=== PATIENT | female | born 1955 | race Two or more races ===

== ENCOUNTER 2016-03-29 13:49 | Emergency (ER) | payer BC, OTHER ==
[2016-03-29 14:07] VITALS: BP 150/84
[2016-03-29] MEDS ORDERED: Aspirin Low Dose CHEW TAB* 81 MG PO ONE (14:38)
[2016-03-29] MEDS ORDERED: Aspirin Low Dose CHEW TAB* 81 MG ONE (14:44)
--- NOTE | 2016-03-29 15:16 | UC ---
Anne Marie Chaidez Claudia, scribed for Radha Nielsen DO on 03/29/16 at 1410 . Cardiac HPI - HPI Summary HPI Summary: 60 year old female presents to the [facility] with CP. Pt notes the pain is located in her left anterior chest and does not radiate to her arm, neck or jaw. She describes this pain as a pressure pain and notes it is currently a 9/10. She notes the pain has been intermittent since yesterday am. 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 She denies any skin daiphoresis, fever, chills, GUTIERREZ, rashes, dizziness, vision changes. Pt notes that she has had some SOB that wakes her up at night for the past few days. FHx of PA (age 35) - History of Current Complaint Chief Complaint: UCChestPain Stated Complaint: CHEST PAIN Hx Obtained From: Patient Onset/Duration: Sudden Onset, Still Present Initial Severity: Severe Current Severity: Severe Pain Intensity: 9 Chest Pain Location: Left Anterior Character: Pressure/Squeezing Aggravating: Nothing Alleviating: Nothing Associated Signs & Symptoms: Positive: Chest Pain, Recent Stress, SOB. Negative : Vision Changes, Dizziness, Syncope, Fever, Diaphoresis, Nausea/Vomiting, Cough , Back Pain, Abdominal Pain - Allergy/Home Medications Allergies/Adverse Reactions: Allergies Allergy/AdvReac Type Severity Reaction Status Date / Time Codeine Allergy Rash Verified 03/29/16 14:00 Home Medications: Home Medications Cyclobenzaprine TAB* [Flexeril TAB*] 1 tab PRN 03/29/16 [History] Fluticasone-Salmeterol 250-50* [Advair Diskus 250-50*] 1 puff DAILY 03/29/16 [ History Confirmed 03/29/16] Meclizine TAB* [Antivert 12.5 TAB*] 03/29/16 [History] PMH/Surg Hx/FS Hx/Imm Hx Previously Healthy: Yes Endocrine History Of: Denies: Diabetes, Thyroid Disease, Hyperthyroidism, Hypothyroidism, Dyslipidemia Cardiovascular History Of: Denies: Cardiac Disorders, Hypertension, Pacemaker/ICD Respiratory History Of: Reports: Asthma Denies: COPD, Bronchitis, Pneumonia, Pulmonary Embolism GI/ History Of: Denies: Gastroesophageal Reflux, Ulcer, Gastrointestinal Bleed, Gall Bladder Disease, Kidney Stones, Diverticulitis, Renal Disease, Urosepsis Neurological History Of: Denies: TIA, CVA, Dementia, Seizures, Migraine Psychological History Of: Reports: Depression Denies: Anxiety, Bipolar Disorder, Schizophrenia, Post Traumatic Stress Disorder Cancer History Of: Denies: Breast Cancer Other History Of: Anticoagulant Therapy - She took an ASA today (325 mg), but she does not take it regularly. Negative For: HIV, Hepatitis B, Hepatitis C - Surgical History Surgical History: Yes Surgery Procedure, Year, and Place: bilat breast reduction; hysterectomy; right inguinal hernia repair; LEFT LEG VERICOSE VEINS - Family History Known Family History: Positive: None, Cardiac Disease, Hypertension - Father, Diabetes - Social History Occupation: Employed Full-time Lives: Alone Alcohol Use: Occasionally Substance Use Type: None Smoking Status (MU): Never Smoked Tobacco Have You Smoked in the Last Year: No Review of Systems Constitutional: Other - no skin diaphoresis Skin: Negative Eyes: Other - No blurred vision ENT: Negative Respiratory: Negative Cardiovascular: Chest Pain Gastrointestinal: Negative Genitourinary: Negative Motor: Negative Neurovascular: Negative Musculoskeletal: Negative Neurological: Negative Psychological: Negative All Other Systems Reviewed And Are Negative: Yes Physical Exam Triage Information Reviewed: Yes Appearance: Well-Appearing, No Pain Distress, Obese Vital Signs: Initial Vital Signs Temp 97.4 F 03/29/16 14:01 Pulse 64 03/29/16 14:01 Resp 18 03/29/16 14:01 BP 150/84 03/29/16 14:01 Pulse Ox 95 03/29/16 14:01 Vital Signs Reviewed: Yes Eyes: Positive: Conjunctiva Clear. Negative: Conjunctiva Inflamed ENT Exam: Normal ENT: Positive: Hearing grossly normal. Negative: Muffled/hoarse voice Neck exam: Normal Neck: Positive: Supple, Nontender Respiratory Exam: Normal Respiratory: Positive: Lungs clear, Normal breath sounds, No respiratory distress, No accessory muscle use Cardiovascular Exam: Normal Cardiovascular: Positive: RRR, No Murmur Abdominal Exam: Normal Abdomen Description: Positive: Nontender, Soft. Negative: Distended, Guarding Bowel Sounds: Positive: Present Musculoskeletal Exam: Normal Neurological Exam: Normal Neurological: Positive: Alert, Muscle Tone Normal Psychological Exam: Normal Psychological: Positive: Age Appropriate Behavior Skin Exam: Normal Diagnostics - EKG Cardiac Rate: NL - 64 beats/min Cardiac Rhythm: Sinus: Normal - NSR ST Segment: Normal - No ST changes - Assessment/Plan Course Of Treatment: spent 5-10 minutes total (x2) urging pt to ambulance. pt agreed then changed her mind - Differential Diagnoses - Chest Pain Differential Diagnosis/HQI/PQRI: Acute PA, ACS, Angina, Chest Wall, GI Disease, Other: - sadness/greif, anxiety - Clinical Impression Provider Diagnoses: cp r/o acs Discharge - Discharge Plan Condition: Stable Disposition: AGAINST MEDICAL ADVICE Referrals: Cindy Patel MD [Primary Care Provider] - The documentation as recorded by the Anne Marie robles Claudia accurately reflects the service I personally performed and the decisions made by , Radha Nielsen DO.
== END 2016-03-29 14:55 | disposition left against medical advice (07) ==
LOC: UCEAST 13:49
DX: R07.89 Other chest pain (principal); Z88.5 Allergy status to narcotic agent; Z79.82 Long term (current) use of aspirin
CPT/HCPCS: 93005; 99212; A9270-GY; G0463

== ENCOUNTER 2017-02-16 07:39 | Emergency (ER) | payer BC ==
--- OUTSIDE RECORDS SUMMARY | 2017-02-16 07:48 | XMS REPORT ---
:1955 External Reference #:[id number] Author Organization [facility] Address [address] [place] [address] Phone [phone] Care Team Providers Name Role Phone Jenny Calderon MD Care Team Information Physical Metallurgist Unavailable Cindy Patel MD Primary Care Physician Unavailable Payers Type Date Identification Numbers Payment Provider Subscriber Commercial Policy Number: [id number] [employer] Melissa Martel PayID: [id number] [address] [address] [place] [address] Workers Compensation Onset: 2015 Policy Number: Nca Comp Melissa Martel [id number] Group Name: [id number] [address] [facility] [address] PayID: [id number] [place] [address] Commercial Expires: 2009 Policy Number: Total Care/[place] [employer] Melissa Martel [id number] [facility] PayID: [id number] [address] [address] [place] [address] Problems Date Description Provider Status Onset: 08/29/2012 Mixed hyperlipidemia Alfred Green M.D. Active Onset: 08/29/2012 Depressive disorder Alfred Green M.D. Active Onset: 08/29/2012 Asthma without status asthmaticus Alfred Geren M.D. Active Onset: 08/29/2012 Obesity Alfred Green M.D. Active Onset: 11/29/2012 Fibromatosis Alfred Green M.D. Active Onset: 04/17/2014 Irritable bowel syndrome Cindy Patel M.D. Active Onset: 11/07/2014 Breast lump Cindy Patel M.D. Active Onset: 11/12/2010 Chest pain Ana Perez D.O. Resolved Resolved: 10/24/2013 Onset: 12/03/2010 Syncope and collapse Ana Perez D.O. Resolved Resolved: 10/24/2013 Onset: 08/29/2012 Adult health examination Alfred Green M.D. Resolved Resolved: 10/24/2013 Onset: 08/29/2012 Acute bronchitis Alfred Green M.D. Resolved Resolved: 10/24/2013 Onset: 11/29/2012 Vaginitis and vulvovaginitis Alfred Green M.D. Resolved Resolved: 10/24/2013 Onset: 11/29/2012 Urinary tract infectious disease Alfred Green M.D. Resolved Resolved: 10/24/2013 Family History Date Family Member(s) Problem(s) Comments Onset: (age 80 Years) Father HX of CAD Mother 89 Social History Type Date Description Comments Marital Status Lives With Children Occupation housekeeping Cigarette Use Never Smoked Cigarettes ETOH Use Denies alcohol use Recreational Drug Use Denies Drug Use Smoking Patient has never smoked Daily Caffeine Consumes on average 1 cup of regular coffee per day Exercise Type/Frequency Exercises sporadically Currently Active Patient is currently not sexually active Sexual Hx text Menaopause at age 49 Last Pap and rectal:09/11/07 Allergies, Adverse Reactions, Alerts Date Description Reaction Status Severity Comments 09/17/2008 Hydrocodone Bitartrate itchy rash active 05/21/2015 Ibuprofen active Medications Medication Date Status Form Strength Qnty SIG Indications Ordering Provider Adv Diskus 04/20 Active Aerosol 500-50mcg 60uni inhale 1 Kasi E. /2017 /Dose ts dose by Poonam, mouth twice M.D. a day Elbow Support 10/06 Active Misc 1unit as needed S53.402A Cindy Left s DX:S53.402A Terrence Patel Night Splint 05/12 Active 1unit to use as M72.2 Cindy Left Foot s needed at Patel, night M.D. Albuterol 05/06 Active Nebulizer (2.5mg/3M 150ml 1 vial via Kasi E. Sulfate /2015 L) 0.083% nebulizer 4 Poonam, times daily M.D. as needed Loratadine 10/30 Active Tablets 10mg 90tab 1 by mouth Kasi Alcaraz s every day Terrence Levin Wrist Brace Left 06/19 Active Misc 1unit as needed 354.0 Cindy s Dx Carpal irineo Patel M.DGisela syndrome Multi For Her 10/24 Active Tablets once a day Cindy 50+ /2013 Terrence Patel Proair HFA 07/31 Active Aerosol 108(90Bas 8.5un take 2 Kasi EGisela /2013 e) its puffs every Poonam, mcg/Act 4 to 6 M.D. hours as needed Amitriptyline Active Tablets 10mg Unknown HCL / Cyclobenzaprine 06/11 Hx Tablets 5mg 10tab take one M54.5 Kasi EGisela s tablet by Poonam, - mouth at M.D. 10/06 night Nduloxetine HCL 04/[address] 30mg 30cap nott Part s taking-- Amanda, - one capsule M.D. 01/27 by mouth /2016 every day Alprazolam 04/01 Hx Tablets 0.25mg 5tabs 1 tab by Kasi EGisela Dispers mouth as Poonam, - needed once M.D. 09/22 a Prednisone 03/23 Hx Tablets 10mg QS take 3 tab J45.41 daily x 2 Amanda, - days then 2 M.D. 04/20 tab daily x 3 days and then 1 tab daily x 3 days Ergocalciferol 11/17 Hx Capsules [id number] 8caps 1 tab by mouth every Amanda, - week M.D. 06/11 Prednisone 11/11 Hx Tablets 20mg QS 2 tab by J45.40 mouthdaily Amanda, - x3days then M.D. 01/05 1 tab daily for 5 days then 1/2 tab daily for 3 days Meloxicam 10/06 Hx Tablets 7.5mg 30tab 1 by mouth S53.402A s twice a day Amanda, - as needed M.D. 11/11 for pain /2015 with food Hydrocodone-Acet 10/06 Hx Tablets 5-325mg 7tabs 1tab by Cindy aminophen /2015 mouth at Patel, - night for M.D. 11/11 pain prn. Butalbital-Aceta 08/19 Hx Tablets 50-325mg 30tab G44.89 Shellie minophen /2015 s Dusty - Genie.DGisela 10/06 Cyclobenzaprine 08/19 Hx Tablets 5mg 30tab take one G44.89 Shellie HCL /2015 s half to one Dusty, - tab by M.DGisela 06/11 mouth at bedtime as needed Escitalopram 08/19 Hx Tablets 20mg 30tab 1 by mouth F32.9 Shellie Oxalate s every day Dusty, - M.DGisela 06/11 Ergocalciferol 11/05 Hx Capsules [id number] 8caps 1 tab by Cindy mouth every Amanda, - week M.D. 05/06 Linzess 10/30 Hx Capsules 145mcg 90cap by mouth s every day Jamal Patel M.DGisela 10/06 Metronidazole 07/04 Hx Gel 0.75% 1unit apply Cindy /2015 s intravagina Amanda, - lly once a M.D. 10/30 day x days Cyclobenzaprine 06/18 Hx Tablets 10mg 20tab as needed Cindy HCL s at night Amanda - perla M.DGisela 10/30 Clobetasol 04/27 Hx Cream 0.05% 45gm apply to 692.0 Shellie Propionate rash 2 x Dusty - per day, am M.D. 06/19 and pm. June also apply once during the day while at work Escitalopram 01/05 Hx Tablets 10mg 30tab 1 by mouth F32.9 Kasi Alcaraz Oxalate s every day Jamal Levin M.D. 08/19 Eszopiclone 01/05 Hx Tablets 2mg 30tab 1 talet at 311 Donnie s night by CHRISTOPHE Huerta - mouth as 06/19 needed insomnia Meloxicam 12/26 Hx Tablets 15mg 20tab take 1 847.9 s tablet by Amanda, - mouth daily M.D. 02/18 as needed with food Ergocalciferol 11/09 Hx Capsules [id number] 8caps 1 tab by mouth every Amanda, - week M.D. 10/30 Ibuprofen 10/24 Hx Tablets 200mg as needed 726.32 Cindy bid Amanda, - M.D. 05/20 Mometasone 10/24 Hx Cream 0.1% 1unit apply to 692.89 Cindy Fur s affected Amanda, - area of L M.D. 12/26 hand twice a day 10 days only Ibuprofen 07/31 Hx Tablets 600mg 30tab 1 tab by 726.32 s mouth three Amanda, - times a day M.D. 10/24 as needed Loratadine 07/31 Hx Tablets 10mg 30tab 1 by mouth Kasi EGisela s every day Jamal Levin M.DGisela 01/05 Cyclobenzaprine 07/31 Hx Tablets 5mg 10tab take one 726.32 Cindy s tablet by Amanda, - mouth every M.D. 06/19 night needed Metronidazole 11/29 Hx Gel 0.75% 1tube 1 616.10 [place] applicator Norma, - intravagina M.D. 03/23 l for days Proventil HFA 08/29 Hx Aerosol 108(90Bas 1unit 2 puff(s) Ela e) s po qid prn Cotton, - mcg/Act M.D. 10/24 Azithromycin 08/29 Hx Tablets 250mg 6tabs 2 tab today 466.0 and then Norma, - 1tab daily M.D. 11/29 Advair Diskus 08/29 Hx Aerosol 250-50mcg 60uni Inhale 1 Cindy /Dose ts Dose By Amanda, - Mouth Twice M.D. 04/20 Daily. Rinse Mouth After Use Nitroglycerin 11/12 Hx Tablets 0.4mg 25tab 1 Ana Sub s sublinguall Chris, - y prn chest D.O. 08/29 pain Prednisone 07/25 Hx Tablets 10mg 45tab 2 tabs po 611.79 s daily for , Karen, - 15 days M.D. 11/11 1 po daily for 15 days take with food Flexeril 04/24 Hx Tablets 10mg 90tab 1 po tid 724.2 s prn Karen - M.D. 07/25 Motrin 04/24 Hx Tablets 800mg 120ta 1 tab po 724.2 bs qid Karen - M.D. 07/25 Keflex 12/03 Hx Capsules 250mg 40cap 1 tab po 724.2 s qid Karen - M.D. 12/03 Metrogel-Vaginal 12/03 Hx Gel 0.75% 1tube 1 724.2 applicator Karen, - full bid x M.D. 04/24 5 Metronidazole 12/03 Hx Tablets 500mg 14tab 1 tablet po 724.2 s bid x 7 , Karen, - days M.D. 04/24 Doxycycline 12/03 Hx Capsules 100mg 20cap 1 tablet po 724.2 s bid x 10 , Karen, - days M.D. 04/24 Celebrex 10/25 Hx Capsules 200mg 90cap 1 po qd 715.36 s Karen, - M.D. 12/03 Ibu 09/24 Hx Tablets 800mg 90tab 1 tab po 218.9 s tid prn Karen - M.D. 04/24 Advair Diskus 09/17 Hx Misc 250/50 1mont 1 puff po hsupp bid Karen - ly M.D. 08/29 Proventil HFA 09/17 Hx Aerosol 108mcg/Ac 1Mon 2 puff(s) t po qid Karen cisse - Terrence 08/29 Lexapro 09/17 Hx Tablets 10mg 30tab 1 po qd Kasi Lissa Jamal Arenas M.D. 11/11 Percocet 09/17 Hx Tablets 5-325mg 60tab 1 po q 6 752.3 Stevano s hours as Karen, - needed for M.D. 04/24 pain Cortisporin Hx Solution [id number] 8 drops bid Unknown /0000 -1 - 11/12 Colace Hx Capsules 100mg three times Unknown /0000 a day - 07/31 Estrace Hx Cream 0.1mg/GM 3mon apply 02/23 Unknown /0000 applicator - twice a vaginally as directed Cymbalta Hx Caps DR 60mg 30cap 1 po qd Unknown /0000 Part s - 11/[address] 60mg 30cap 1 po qd Unknown /0000 Part s - 07/31 Linzess Hx Capsules 145mcg 30cap by mouth Alfred /0000 s every day Jamal Green M.D. 07/02 Meclizine HCL Hx Tablets 25mg 60tab 1 by mouth Cindy /0000 s 4 times a Patel, - day as M.D. 05/06 needed for vertigo Nitrostat Hx Tablets 0.4mg 25tab one sl Unknown /0000 Sub s q5min up to - 3 doses as 10/24 Hydrocortisone Hx Cream 1% apply to Unknown /0000 affected - area twice 06/19 a /2014 Duloxetine HCL [address] 60mg 1 by mouth Unknown /0000 Part every day - 10/06 Escitalopram Hx Tablets 10mg Take 1 Unknown Oxalate /0000 Tablet By - Mouth Every 10/06 Day For Week Then Stop Duloxetine HCL [address] 60mg Take One Unknown /0000 Part Capsule By - Mouth Every 10/28 Day With Food Starting In 1 Week Immunizations CPT Code Status Date Vaccine Lot # [id number] Given 12/28/2016 Influenza Virus Vaccine, Quadrivalent, Split, Preservative Free 97004 Given 10/29/2015 Influenza Virus Vaccine, Quadrivalent, Split, Preservative Free 69315 Given 10/30/2014 Pneumococcal Conjugate Vaccine 13 Valent For [id number] Intramuscular Use 07648 Given 09/11/2014 Tdap - Tetanus/Diptheria/Acellular Pertussis 63383 Given 10/24/2013 Pneumonia Vaccine [id number] 92925 Given 10/24/2013 Tdap - Tetanus/Diptheria/Acellular Pertussis [id number] 70997 Given 03/12/2009 Influenza Virus Vaccine, Pandemic Formulation [id number] 17599 Given 03/12/2009 Administration Swine Flu Shot [id number] Refused 12/31/2008 Influenza Virus Vaccine, Pandemic Formulation Vital Signs Date Vital Result Comment 01/27/2017 Weight 200.38 lb Heart Rate 65 /min BP Systolic Sitting 124 mmHg BP Diastolic Sitting 88 mmHg O2 % BldC Oximetry 95 % 10/06/2016 Height 63 inches 5'3" Weight 205.25 lb Heart Rate 69 /min BP Systolic Sitting 120 mmHg BP Diastolic Sitting 78 mmHg Body Temperature 98.5 F O2 % BldC Oximetry 94 % BMI (Body Mass Index) 36.4 kg/m2 06/17/2016 Height 63 inches 5'3" Weight 211.00 lb Heart Rate 84 /min BP Systolic 130 mmHg BP Diastolic 82 mmHg Respiratory Rate 18 /min Body Temperature 98.4 F BMI (Body Mass Index) 37.4 kg/m2 06/11/2016 Weight 211.00 lb Heart Rate 74 /min BP Systolic Sitting 128 mmHg BP Diastolic Sitting 80 mmHg Respiratory Rate 15 /min Body Temperature 98.0 F O2 % BldC Oximetry 98 % 04/20/2016 Weight 207.00 lb Heart Rate 60 /min BP Systolic Sitting 118 mmHg BP Diastolic Sitting 72 mmHg Respiratory Rate 15 /min Body Temperature 98.2 F O2 % BldC Oximetry 97 % 03/23/2016 Weight 203.00 lb Heart Rate 76 /min BP Systolic Sitting 146 mmHg BP Diastolic Sitting 90 mmHg Respiratory Rate 15 /min Body Temperature 98.4 F O2 % BldC Oximetry 98 % 01/06/2016 Height 63 inches 5'3" Weight 203.00 lb Heart Rate 64 /min BP Systolic 126 mmHg BP Diastolic 68 mmHg Body Temperature 97.4 F O2 % BldC Oximetry 96 % BMI (Body Mass Index) 36.0 kg/m2 11/12/2015 Height 63 inches 5'3" Weight 198.00 lb Heart Rate 67 /min BP Systolic Sitting 128 mmHg BP Diastolic Sitting 88 mmHg Body Temperature 97.7 F O2 % BldC Oximetry 97 % BMI (Body Mass Index) 35.1 kg/m2 10/07/2015 Weight 195.50 lb Heart Rate 56 /min BP Systolic Sitting 137 mmHg BP Diastolic Sitting 80 mmHg Pain Level 5 O2 % BldC Oximetry 97 % 08/20/2015 Height 63 inches 5'3" Weight 195.75 lb Heart Rate 64 /min BP Systolic Sitting 140 mmHg BP Diastolic Sitting 68 mmHg Body Temperature 98.6 F BMI (Body Mass Index) 34.7 kg/m2 05/21/2015 Height 63 inches 5'3" Weight 199.00 lb Heart Rate 66 /min BP Systolic 127 mmHg BP Diastolic 78 mmHg BMI (Body Mass Index) 35.2 kg/m2 05/13/2015 Weight 200.75 lb Heart Rate 65 /min BP Systolic Sitting 137 mmHg BP Diastolic Sitting 87 mmHg Body Temperature 97.0 F Pain Level 3 O2 % BldC Oximetry 97 % 05/07/2015 Height 63 inches 5'3" Weight 199.00 lb Heart Rate 60 /min BP Systolic Sitting 126 mmHg BP Diastolic Sitting 76 mmHg Respiratory Rate 16 /min Body Temperature 97.8 F Pain Level 10 L heel O2 % BldC Oximetry 96 % BMI (Body Mass Index) 35.2 kg/m2 10/30/2014 Height 63 inches 5'3" Weight 200.00 lb Heart Rate 64 /min BP Systolic Sitting 148 mmHg BP Diastolic Sitting 87 mmHg Body Temperature 97.7 F BMI (Body Mass Index) 35.4 kg/m2 07/03/2014 Weight 194.00 lb Heart Rate 66 /min BP Systolic Sitting 121 mmHg BP Diastolic Sitting 80 mmHg Pain Level 2 O2 % BldC Oximetry 97 % 06/19/2014 Weight 191.75 lb Heart Rate 53 /min BP Systolic Sitting 130 mmHg BP Diastolic Sitting 80 mmHg Body Temperature 97.2 F O2 % BldC Oximetry 98 % 05/22/2014 Height 63 inches 5'3" Weight 194.00 lb Heart Rate 60 /min BP Systolic Sitting 128 mmHg BP Diastolic Sitting 82 mmHg Body Temperature 98.2 F O2 % BldC Oximetry 98 % BMI (Body Mass Index) 34.4 kg/m2 04/27/2014 Weight 195.25 lb Heart Rate 74 /min BP Systolic Sitting 116 mmHg BP Diastolic Sitting 84 mmHg Body Temperature 97.7 F 01/05/2014 Weight 187.00 lb Heart Rate 84 /min BP Systolic Sitting 120 mmHg BP Diastolic Sitting 78 mmHg Body Temperature 97.5 F 12/26/2013 Weight 192.00 lb Heart Rate 60 /min BP Systolic Sitting 120 mmHg BP Diastolic Sitting 74 mmHg 10/24/2013 Height 63 inches 5'3" Weight 191.75 lb Heart Rate 62 /min BP Systolic Sitting 122 mmHg BP Diastolic Sitting 88 mmHg O2 % BldC Oximetry 96 % BMI (Body Mass Index) 34.0 kg/m2 07/31/2013 Weight 201.00 lb Heart Rate 72 /min BP Systolic Sitting 124 mmHg BP Diastolic Sitting 76 mmHg 03/23/2013 Height 63 inches 5'3" Weight 209.00 lb Heart Rate 69 /min BP Systolic Sitting 133 mmHg BP Diastolic Sitting 83 mmHg Body Temperature 97.4 F BMI (Body Mass Index) 37.0 kg/m2 11/29/2012 Height 63 inches 5'3" Weight 200.00 lb Heart Rate 68 /min BP Systolic Sitting 120 mmHg BP Diastolic Sitting 80 mmHg Body Temperature 98.0 F BMI (Body Mass Index) 35.4 kg/m2 08/29/2012 Height 63 inches 5'3" Weight 202.00 lb Heart Rate 71 /min BP Systolic Sitting 122 mmHg BP Diastolic Sitting 88 mmHg Body Temperature 97.9 F O2 % BldC Oximetry 98 % BMI (Body Mass Index) 35.8 kg/m2 12/03/2010 Height 63 inches 5'3" Weight 184.00 lb Heart Rate 72 /min BP Systolic Sitting 104 mmHg BP Diastolic Sitting 62 mmHg BMI (Body Mass Index) 32.6 kg/m2 11/12/2010 Height 63 inches 5'3" Weight 187.00 lb Heart Rate 54 /min BP Systolic 120 mmHg L BP Diastolic 80 mmHg L BMI (Body Mass Index) 33.1 kg/m2 07/25/2009 Weight 212.00 lb Heart Rate 60 /min BP Systolic Sitting 134 mmHg BP Diastolic Sitting 84 mmHg 04/24/2009 Height 62.5 inches 5'2.50" Weight 210.00 lb Heart Rate 58 /min BP Systolic Sitting 140 mmHg BP Diastolic Sitting 84 mmHg BMI (Body Mass Index) 37.8 kg/m2 03/12/2009 Weight 209.00 lb Heart Rate 68 /min BP Systolic Sitting 140 mmHg BP Diastolic Sitting 84 mmHg 12/03/2008 Weight 210.00 lb Heart Rate 58 /min BP Systolic Sitting 119 mmHg BP Diastolic Sitting 71 mmHg Body Temperature 97.3 F 10/25/2008 Height 62.5 inches 5'2.50" Weight 208.00 lb Heart Rate 60 /min BP Systolic Sitting 130 mmHg BP Diastolic Sitting 80 mmHg BMI (Body Mass Index) 37.4 kg/m2 09/24/2008 Height 62.5 inches 5'2.50" Weight 216.50 lb Heart Rate 60 /min BP Systolic Sitting 140 mmHg BP Diastolic Sitting 80 mmHg BMI (Body Mass Index) 39.0 kg/m2 09/17/2008 Height 62.5 inches 5'2.50" Weight 210.00 lb Heart Rate 62 /min BP Systolic Sitting 154 mmHg BP Diastolic Sitting 90 mmHg Respiratory Rate 18 /min Body Temperature 97.8 F BMI (Body Mass Index) 37.8 kg/m2 Results Test Date Test Result H/L Range Note Lipid Profile (Trig/Chol/HDL) 11/13/2015 Triglycerides 142 mg/dL 1 Cholesterol 230 mg/dL 2 HDL Cholesterol 48.3 mg/dL 3 LDL Cholesterol 153 mg/dL 4 Basic Metabolic Panel 11/13/2015 Sodium 140 mmol/L 133-145 Potassium 4.2 mmol/L 3.5-5.0 Chloride 106 mmol/L 101-111 Co2 Carbon Dioxide 30 mmol/L 22-32 Anion Gap 4 mmol/L 2-11 Glucose 71 mg/dL 70-100 Blood Urea Nitrogen 23 mg/dL 6-24 Creatinine 0.65 mg/dL 0.51-0.95 BUN/Creatinine Ratio 35.4 High 8-20 Calcium 9.1 mg/dL 8.6-10.3 Egfr Non- 93.0 >60 Egfr 119.6 >60 5 Laboratory test finding 11/13/2015 Hepatitis C Antibody Nonreactive Nonreactive 6 Vitamin D Total 25(Oh) 15.6 ng/mL Low 30-50 7 HIV 1/2 AB 11/13/2015 HIV 1 2 Antibody Nonreactive Nonreactive 8 Evaluation Laboratory test 11/15/2014 Surgical Pathology SEE RESULT BELOW 9 finding Laboratory test 10/30/2014 Erythrocyte Sed Rate 29 mm/Hr 0-30 finding Rheumatoid Factor <15 IU/mL <15 10 Lyme Disease Serology Negative Negative 11 Vitamin D Total 25(Oh) 13.6 ng/mL Low 30-50 Debra (Antinuclear Antibodies) Negative Negative Lipid Profile (Trig/Chol/HDL) 10/30/2014 Triglycerides 107 mg/dL 12 Cholesterol 241 mg/dL 13 HDL Cholesterol 53.3 mg/dL 14 LDL Cholesterol 166 mg/dL 15 Laboratory test 07/03/2014 Gardnerella/Yeast: Vaginal SEE RESULT 16 finding Dna BELOW CBC Auto Diff 06/18/2014 White Blood Count 6.4 10^3/uL 4.8-10.8 Red Blood Count 4.56 10^6/uL 4.0-5.4 Hemoglobin 13.1 g/dL 12.0-16.0 Hematocrit 40 % 35-47 Mean Corpuscular Volume 88 fL 80-97 Mean Corpuscular Hemoglobin 29 pg 27-31 Mean Corpuscular HGB Conc 33 g/dL 31-36 Red Cell Distribution Width 14 % 10.5-15 Platelet Count 284 10^3/uL 150-450 Mean Platelet Volume 8 um3 7.4-10.4 Abs Neutrophils 3.9 10^3/uL 1.5-7.7 Abs Lymphocytes 1.8 10^3/uL 1.0-4.8 Abs Monocytes 0.4 10^3/uL 0-0.8 Abs Eosinophils 0.2 10^3/uL 0-0.6 Abs Basophils 0.1 10^3/uL 0-0.2 Abs Nucleated RBC 0 10^3/uL Granulocyte % 60.7 % 38-83 Lymphocyte % 28.1 % 25-47 Monocyte % 7.1 % 1-9 Eosinophil % 3.2 % 0-6 Basophil % 0.9 % 0-2 Nucleated Red Blood Cells % 0.1 Comp Metabolic Panel 06/18/2014 Sodium 140 mmol/L 133-145 Potassium 4.0 mmol/L 3.5-5.0 Chloride 107 mmol/L 101-111 Co2 Carbon Dioxide 28 mmol/L 22-32 Anion Gap 5 mmol/L 2-11 Glucose 94 mg/dL 70-100 Blood Urea Nitrogen 22 mg/dL 6-24 Creatinine 0.66 mg/dL 0.51-0.95 BUN/Creatinine Ratio 33.3 High 8-20 Calcium 9.2 mg/dL 8.6-10.3 Total Protein 6.9 g/dL 6.4-8.9 Albumin 3.9 g/dL 3.2-5.2 Globulin 3.0 g/dL 2-4 Albumin/Globulin Ratio 1.3 1-3 Total Bilirubin 0.40 mg/dL 0.2-1.0 Alkaline Phosphatase 62 U/L 34-104 Alt 20 U/L 7-52 Ast 23 U/L 13-39 Egfr Non- 92.0 >60 Egfr 118.3 >60 17 Laboratory test finding 06/18/2014 Troponin I 0.01 ng/mL <0.03 18 Laboratory test finding 04/27/2014 Testosterone 25.53 ng/dL 8-60 Dhea 1.8 ng/mL <6.0 19 TSH (Thyroid Stimulating Horm) 2.75 IU/mL 0.34-5.60 CBC Auto Diff 04/27/2014 White Blood Count 5.8 10^3/uL 4.8-10.8 Red Blood Count 4.62 10^6/uL 4.0-5.4 Hemoglobin 13.3 g/dL 12.0-16.0 Hematocrit 40 % 35-47 Mean Corpuscular Volume 87 fL 80-97 Mean Corpuscular Hemoglobin 29 pg 27-31 Mean Corpuscular HGB Conc 33 g/dL 31-36 Red Cell Distribution Width 14 % 10.5-15 Platelet Count 281 10^3/uL 150-450 Mean Platelet Volume 9 um3 7.4-10.4 Abs Neutrophils 2.8 10^3/uL 1.5-7.7 Abs Lymphocytes 2.4 10^3/uL 1.0-4.8 Abs Monocytes 0.4 10^3/uL 0-0.8 Abs Eosinophils 0.2 10^3/uL 0-0.6 Abs Basophils 0 10^3/uL 0-0.2 Abs Nucleated RBC 0 10^3/uL Granulocyte % 47.9 % 38-83 Lymphocyte % 42.0 % 25-47 Monocyte % 6.4 % 1-9 Eosinophil % 3.0 % 0-6 Basophil % 0.7 % 0-2 Nucleated Red Blood Cells % 0.1 Comp Metabolic Panel 04/27/2014 Sodium 136 mmol/L 133-145 Potassium 4.0 mmol/L 3.5-5.0 Chloride 102 mmol/L 101-111 Co2 Carbon Dioxide 31 mmol/L 22-32 Anion Gap 3 mmol/L 2-11 Glucose 76 mg/dL 70-100 Blood Urea Nitrogen 18 mg/dL 6-24 Creatinine 0.60 mg/dL 0.51-0.95 BUN/Creatinine Ratio 30.0 High 8-20 Calcium 9.7 mg/dL 8.6-10.3 Total Protein 7.0 g/dL 6.4-8.9 Albumin 4.2 g/dL 3.2-5.2 Globulin 2.8 g/dL 2-4 Albumin/Globulin Ratio 1.5 1-3 Total Bilirubin 0.50 mg/dL 0.2-1.0 Alkaline Phosphatase 61 U/L 34-104 Alt 22 U/L 7-52 Ast 20 U/L 13-39 Egfr Non- 102.7 >60 Egfr 132.1 >60 20 Vitamin D, 25 Hydroxy 01/09/2014 25-Hydroxy Vitamin D2 8.1 ng/mL 25-Hydroxy Vitamin D3 21 ng/mL 25-Hydroxy Vitamin D Total 29 ng/mL 21 Vitamin D, 25 Hydroxy 11/06/2013 25-Hydroxy Vitamin D2 <4.0 ng/mL 25-Hydroxy Vitamin D3 19 ng/mL 25-Hydroxy Vitamin D Total 19 ng/mL 22 Pthi 11/06/2013 PTH Intact 4.5 pmol/L 1.3-9.3 Calcium (PTH Intact) 9.4 mg/dL 8.6-10.3 Laboratory test 11/06/2013 Acetaminophen < 15 g/mL 23 finding Laboratory test 10/24/2013 Cytology RUN DATE: finding <SEE NOTE> HPV High Risk 10/24/2013 Human Papillomavirus See Comment 25 Source HPV High Risk Type 16, PCR Negative Negative HPV High Risk Type 18, PCR Negative Negative HPV Other Risk types Negative Negative 26 Lipid Profile (Trig/Chol/HDL) 09/06/2013 Triglycerides 126 mg/dL 27, 28 Cholesterol 213 mg/dL 27, 29 HDL Cholesterol 43.8 mg/dL 27, 30 LDL Cholesterol 144 mg/dL 27, 31 Basic Metabolic Panel 09/06/2013 Sodium 141 mmol/L 133-145 27 Potassium 5.0 mmol/L 3.7-5.6 27 Chloride 104 mmol/L 101-111 27 Co2 Carbon Dioxide 32 mmol/L 22-32 27 Anion Gap 5 mmol/L 2-11 27 Glucose 90 mg/dL 70-100 27 Blood Urea Nitrogen 17 mg/dL 6-24 27 Creatinine 0.64 mg/dL 0.51-0.95 27 BUN/Creatinine Ratio 26.6 High 8-20 27 Calcium 9.6 mg/dL 8.6-10.3 27 Egfr Non- 95.3 >60 27 Egfr 122.6 >60 27, 32 Urine Culture And Sensitivities 11/29/2012 Urine Culture (SEE NOTE) 33 Urinalysis W/Microscopic 11/29/2012 Urine Color Yellow Urine Appearance Turbid Urine Specific Elizabeth 1.029 1.010-1.030 Urine Esterase 3+ Negative Urine Nitrate Negative Negative Urine Urobilinogen Negative E.U./dL Negative Urine Protein Negative mg/dL Negative Urine pH 5.5 5-9 Urine Blood 1+ Negative Urine Ketones Negative mg/dL Negative Urine Bilirubin Negative Negative Urine Glucose Negative mg/dL Negative Urine WBC 2+ (>10-30 /hpf) None Seen 34 Urine RBC 1+ (<3 /hpf) None Seen Urine Epithelial Cells 2+ Squamous /hpf None Seen Bacteria Urine None Seen None Seen Ua Routine 11/29/2012 Ua Specific Elizabeth 1.025 Ua PH 5.0 Ua Color yellow Ua Appera cloudy Ua WBC moderate Ua Protein trace Ua Glucose neg Ua Ketones neg Ua Bilirubin small Ua Urobilinogen neg Ua Nitrite neg Ua Occult Blood non hem trace Laboratory test finding 08/29/2012 TSH (Thyroid Stimulating 2.53 miu/mL 0.34-5.60 Horm) Comp Metabolic Panel 08/29/2012 Sodium 143 mmol/L 133-145 Potassium 4.6 mmol/L 3.5-5.0 Chloride 107 mmol/L 101-111 Co2 Carbon Dioxide 32.0 mmol/L 22-32 Anion Gap 4.0 mmol/L 2-11 Glucose 100 mg/dL 70-100 Blood Urea Nitrogen 13 mg/dL 6-24 Creatinine 0.60 mg/dL 0.50-1.40 BUN/Creatinine Ratio 21.7 High 8-20 Calcium 9.5 mg/dL 8.1-9.9 Total Protein 6.5 g/dL 6.2-8.1 Albumin 3.7 g/dL 3.6-5.4 Globulin 2.8 g/dL 2-4 Albumin/Globulin Ratio 1.3 1-3 Total Bilirubin 0.7 mg/dL 0.4-1.5 Alkaline Phosphatase 70 U/L 30-110 Alt 18 U/L 14-54 Ast 21 U/L 12-42 Egfr Non- 103.0 >60 Egfr 132.5 >60 35 Lipid Profile (Trig/Chol/HDL) 08/29/2012 Triglycerides 129 mg/dL 40-200 Cholesterol 235 mg/dL High Less than 200 HDL Cholesterol 48 mg/dL 40-60 36 Cholesterol/HDL Ratio 4.9 Average High 1-4.44 LDL Cholesterol 161.2 High Less Than 100 37 Cath Panel 11/13/2010 PTT (Aptt) 31.4 25.15-38.53 CBC With Manual Diff 11/13/2010 White Blood Count 5.4 CUMM 4.8-10.8 Red Cell Count 4.53 CUMM 4.2-5.4 Hemoglobin 13.3 g/dL 12.0-16.0 Hematocrit 39 % 35-47 Mean Corpuscular Volume 86 um3 79-97 Mean Corpuscular Hemoglob 29 pg 27-31 Mean Corpuscular HGB Cone 34 g/dL 32-36 Redcell Distribution WDTH 14 % 10.5-15 Platelet Count 290 CUMM 150-450 Mean Platelet Volume 8.3 um3 7.4-10.4 Polysegmented Neutrophil 57 % 38-83 Lymphocyte 27 % 25-47 Monocyte 10 % 0-13 Eosinophil 5 % 0-6 Atypical Lymph 1 % 0-6 Absolute Neutrophil Count 3.0 Anisocytosis SLIGHT Basic Metabolic Panel 11/13/2010 Sodium 139 mmol/L 135-145 Potassium 4.0 mmol/L 3.5-5.0 Chloride 105 mmol/L 101-111 Co2 (Carbon Dioxide) 28.0 mmol/L 22-32 Anion Gap 6.0 mmol/L 2-11 38 Glucose 97 mg/dL 70-100 BUN 13 mg/dL 6-24 Creatinine 0.6 mg/dL 0.50-1.40 One Over Creatinine 1.66 BUN/Creatinine Ratio 21.7 High 8-20 Calcium 9.2 mg/dL 8.1-9.9 eGFR Non- 103.8 > 60 eGFR 133.5 > 60 39 Protime 11/13/2010 Inr 0.96 0.82-1.17 40 Protime 11.3 SEC 10.2-14.8 41 Urinalysis W/Microscopic 11/05/2009 Ua Color YELLOW Yellow Appearance-Urine CLEAR Clear Specific Elizabeth-Ur 1.018 1.010-1.030 Esterase-Urine 1+ Negative Nitrite NEGATIVE Negative Ucyfhnfdcpii-Jt-XBV NEGATIVE Negative Protein-Urine NEGATIVE Negative PH-Urine 7.5 5-9 Blood-Urine NEGATIVE Negative Ketones-Urine NEGATIVE Negative Bilirubin-Ur NEGATIVE Negative Glucose-Urine NEGATIVE Negative WBC-Urine 5-10 0-5 RBC-Urine NONE SEEN 0-2 Epith Cells-Ur MODERATE None Bacteria-Urine TRACE None Comp Metabolic Panel 11/05/2009 Sodium 141 mmol/L 135-145 Potassium 4.3 mmol/L 3.5-5.0 Chloride 107 mmol/L 101-111 Co2 (Carbon Dioxide) 31.0 mmol/L 22-32 Anion Gap 3.0 mmol/L 2-11 42 Glucose 101 mg/dL High 70-100 43 BUN 12 mg/dL 6-24 Creatinine 0.60 mg/dL 0.50-1.40 One Over Creatinine 1.60 BUN/Creatinine Ratio 20.0 8-20 Calcium 9.2 mg/dL 8.1-9.9 Total Protein 6.4 GM/DL 6.2-8.1 Albumin 3.9 GM/DL 3.6-5.4 Globulin 2.5 GM/DL 2-4 Albumin/Globulin Ratio 1.6 1-3 Bilirubin Total 0.7 mg/dL 0.4-1.5 44 Alkaline Phosphatase 59 U/L 30-110 Alt (SGPT) 21 U/L 14-54 Ast (Sgot) 23 U/L 12-42 eGFR Non- 110.7 > 60 eGFR 134.0 > 60 45 Lipid Profile (Trig/Chol/HDL) 11/05/2009 Triglyceride 179 mg/dL 40-200 Cholesterol 282 mg/dL High Less Than 200 46 High Density Lipoprotein 48 mg/dL 40-60 47 Cholesterol/HDL Ratio 5.88 AVERAGE High 1-4.44 Low Density Lipoprotein 198 mg/dL High Less Than 100 48 Laboratory test finding 11/05/2009 TSH 1.47 MIU/ML 0.34-5.60 CBC With Electronic Diff 11/05/2009 White Blood Count 7.2 CUMM 4.8-10.8 Red Cell Count 4.45 CUMM 4.2-5.4 Hemoglobin 12.8 g/dL 12.0-16.0 Hematocrit 38 % 35-47 Mean Corpuscular Volume 85 um3 79-97 Mean Corpuscular Hemoglob 29 pg 27-31 Mean Corpuscular HGB Cone 34 g/dL 32-36 Redcell Distribution WDTH 15 % 10.5-15 Platelet Count 337 CUMM 150-450 Mean Platelet Volume 7.4 um3 7.4-10.4 Gran % 51.0 % 38-83 Lymph % 37.9 % 25-47 Mononuclear % 5.8 % 1-9 Eosinophil % 4.7 % 0-6 Basophil % 0.6 % 0-2 Abs Lymphs 2.7 1.0-4.8 Abs Mononuclear 0.4 0-0.8 Absolute Neutrophil Count 3.7 1.5-7.7 Abs Eosinophils 0.3 0-0.6 Abs Basophils 0 0-0.2 Laboratory test finding 11/05/2009 Erythrocyte Sed Rate 38 MM/HR High 0- 30 CBC With Electronic Diff 07/25/2009 White Blood Count 6.3 CUMM 4.8-10.8 Red Cell Count 4.57 CUMM 4.2-5.4 Hemoglobin 13.3 g/dL 12.0-16.0 Hematocrit 40 % 35-47 Mean Corpuscular Volume 87 um3 79-97 Mean Corpuscular Hemoglob 29 pg 27-31 Mean Corpuscular HGB Cone 34 g/dL 32-36 Redcell Distribution WDTH 15 % 10.5-15 Platelet Count 356 CUMM 150-450 Mean Platelet Volume 7.9 um3 7.4-10.4 Gran % 51.7 % 38-83 Lymph % 39.0 % 25-47 Mononuclear % 6.0 % 1-9 Eosinophil % 2.8 % 0-6 Basophil % 0.5 % 0-2 Abs Lymphs 2.4 1.0-4.8 Abs Mononuclear 0.4 0-0.8 Absolute Neutrophil Count 3.2 1.5-7.7 Abs Eosinophils 0.2 0-0.6 Abs Basophils 0 0-0.2 Comp Metabolic Panel 07/25/2009 Sodium 143 mmol/L 135-145 Potassium 4.7 mmol/L 3.5-5.0 Chloride 108 mmol/L 101-111 Co2 (Carbon Dioxide) 29.0 mmol/L 22-32 Anion Gap 6.0 mmol/L 2-11 49 Glucose 87 mg/dL 70-100 50 BUN 16 mg/dL 6-24 Creatinine 0.70 mg/dL 0.50-1.40 One Over Creatinine 1.40 BUN/Creatinine Ratio 22.9 High 8-20 Calcium 9.3 mg/dL 8.1-9.9 51 Total Protein 6.6 GM/DL 6.2-8.1 Albumin 4.1 GM/DL 3.6-5.4 Globulin 2.5 GM/DL 2-4 Albumin/Globulin Ratio 1.6 1-3 Bilirubin Total 0.6 mg/dL 0.4-1.5 52 Alkaline Phosphatase 70 U/L 30-110 Alt (SGPT) 25 U/L 14-54 Ast (Sgot) 23 U/L 12-42 eGFR Non- 93.0 > 60 eGFR 112.6 > 60 53 Protime 07/25/2009 Inr 0.97 0.97-1.03 54 Protime 11.4 SEC Low 11.5-12.2 55 Laboratory test finding 07/25/2009 PTT (Aptt) 36.0 25.15-38.53 56 CBC With Electronic Diff 09/20/2008 White Blood Count 6.4 CUMM 4.8-10.8 57 Red Cell Count 4.55 CUMM 4.2-5.4 57 Hemoglobin 13.2 g/dL 12.0-16.0 57 Hematocrit 40 % 35-47 57 Mean Corpuscular Volume 87 um3 79-97 57 Mean Corpuscular Hemoglob 29 pg 27-31 57 Mean Corpuscular HGB Cone 33 g/dL 32-36 57 Redcell Distribution WDTH 14 % 10.5-15 57 Platelet Count 306 CUMM 150-450 57 Mean Platelet Volume 8.0 um3 7.4-10.4 57 Gran % 53.7 % 38-83 57 Lymph % 35.5 % 25-47 57 Mononuclear % 6.5 % 1-9 57 Eosinophil % 3.7 % 0-6 57 Basophil % 0.6 % 0-2 57 Abs Lymphs 2.3 1.0-4.8 57 Abs Mononuclear 0.4 0-0.8 57 Absolute Neutrophil Count 3.4 1.5-7.7 57 Abs Eosinophils 0.2 0-0.6 57 Abs Basophils 0 0-0.2 57 Urinalysis W/Microscopic 09/20/2008 Ua Color YELLOW 57 Appearance-Urine CLOUDY 57 Specific Elizabeth-Ur 1.016 1.010-1.030 57 Esterase-Urine 3+ Negative 57 Nitrite NEGATIVE Negative 57 Fjpbjoqhcupf-Bx-RRV NEGATIVE Negative 57 Protein-Urine NEGATIVE Negative 57 PH-Urine 7.5 5-9 57 Blood-Urine TRACE Negative 57 Ketones-Urine NEGATIVE Negative 57 Bilirubin-Ur NEGATIVE Negative 57 Glucose-Urine NEGATIVE Negative 57 WBC-Urine 2-5 0-5 57 RBC-Urine 0-2 0-2 57 Epith Cells-Ur FEW 57 Laboratory test finding 09/20/2008 Fasting Urine Glucose NEGATIVE Negative 57 Laboratory test finding 09/20/2008 Fasting Glucose 90 mg/dL 70-110 57 1HR Glucose 127 mg/dL 57, 58 2HR Glucose 125 mg/dL 57, 59 3HR Glucose 95 mg/dL 57, 60 Urine Culture & Sensitivi 09/20/2008 Urine Culture Sensitivi NG 57, 61 1 Desirable <150 Borderline high 150-199 High 200-499 Very High >500 2 Desirable <200 Borderline high 200-239 High >239 3 Low <40 Desirable: 40-60 High: >60 4 Desirable: <100 mg/dL Near Optimal: 100-129 mg/dL Borderline High: 130-159 mg/dL High: 160-189 mg/dL Very High: >189 mg/dL 5 Because ethnic data is not always readily available, this report includes an eGFR for both -Americans and non- Americans. The National Kidney Disease Education Program (NKDEP) does not endorse the use of the MDRD equation for patients that are not between the ages of 18 and 70, are , have extremes of body size, muscle mass, or nutritional status, or are non- or non-. According to the National Kidney Foundation, irrespective of diagnosis, the stage of the disease is based on the level of kidney function: Stage Description GFR(mL/min/1.73 m(2)) 1 Kidney damage with normal or decreased GFR 90 2 Kidney damage with mild decrease in GFR 60-89 3 Moderate decrease in GFR 30-59 4 Severe decrease in GFR 15-29 5 Kidney failure <15 (or dialysis) 6 FASTING 10 HOUR 7 FASTING 10 HOUR 8 It is recognized that currently available assays for the detection of antibodies to HIV-1 and/or HIV-2 may not detect all infected individuals. HIV antibodies may be undetectable in some stages of the infection and in some clinical conditions. The performance of this assay has not been established for populations of infants or children. Assayed by Chemiluminescence Microparticle Immunoassay on the Siemens Advia Centaur CP. Values obtained with different methods or kits cannot be used interchangeably.The diagnostic specificity of the ADVIA Centaur 1/O/2 Enhanced assay in the low risk population was 99.90% (6052/6058) with a 95% confidence interval of 99.78 to 99.96%. 9 SEE RESULT BELOW Name: MELISSA MARTEL : [address]: Cindy Patel MD Acct: [id number] Unit: [id number] AGE: 59 Location: [facility] Re11/15/14 SEX: F Status: REG REF SPEC: [id number] TANIA: 11/15/14-[address] [facility] [address]: Kasi Subramanian MD REQ: [id number] RECD: 11/15/14-1314 STATUS: MALCOLM WEBB DR: Cindy Patel MD _ ORDERED: LEVEL IV FINAL DIAGNOSIS Breast, right, 1:00, biopsy: -- Benign breast tissue with stromal sclerosis and pseudo-angiomatous stromal hyperplasia. -- No evidence of invasive or in situ carcinoma. COMMENT: Clinical and radiologic correlation is recommended. CLINICAL HISTORY PRE-OPERATIVE DIAGNOSIS Right breast mass at 1:00 retroareolar 2.8 x 0.9 x 1.4 cm POST-OPERATIVE DIAGNOSIS Differential diagnosis scarring due to previous reduction mammoplasty versus neoplasm. GROSS DESCRIPTION The specimen is received in formalin labeled, Right Breast, and consists of two yellow white fibrofatty soft tissue cores averaging 1.2 x 0.2 cm, which are submitted entirely in one cassette. Signed (signature on file) Venessa Porter MD [id number] END OF REPORT * ML=Testing performed at [facility] DEPARTMENT OF PATHOLOGY, [address] [place] [address] Vishal Loya M.D. Director [facility] # [id number] 10 Test Performed by: [place] [address] Head Waiter/Waitress Banquet: Stone Rodriguez II, M.D., Ph.D. 11 Serologic response to B. burgdorferi infection is not detected, but cannot rule out early infection during which low or undetectable antibody levels to B. burgdorferi may be present. If clinically indicated, a new serum specimen should be submitted in 7-14 days. Test Performed by: [address] [address] Head Waiter/Waitress Banquet: Stone Rodriguez II, M.D., Ph.D. 12 Desirable <150 Borderline high 150-199 High 200-499 Very High >500 13 Desirable <200 Borderline high 200-239 High >239 14 Low <40 Desirable: 40-60 High: >60 15 Desirable: <100 mg/dL Near Optimal: 100-129 mg/dL Borderline High: 130-159 mg/dL High: 160-189 mg/dL Very High: >189 mg/dL 16 SEE RESULT BELOW Name: MELISSA MARTEL : [address]: Cindy Patel MD Acct: [id number] Unit: [id number] AGE: 58 Location: [facility] Re07/03/14 SEX: F Status: REG REF SPEC: [id number] TANIA: 07/03/14-[address] [facility] [address]: Cindy Patel MD REQ: [id number] RECD: 07/03/14 STATUS: COMP _ SOURCE: VAGINAL SPDESC: ORDERED: Alana,Yeast DNA, Trich DNA Procedure Result Verified Site Gardnerella/Yeast: Vaginal DNA Final 07/04/14- 8 ML Organism 1 POSITIVE GARDNERELLA Organism 2 Negative Gwen The presence of G. vaginalis, although suggestive, is not diagnostic for bacterial vaginosis. Results should be interpreted in conjuction with other clinical and laboratory data available. Women with vaginal discharge should be evaluated for risk factors of cervicitis and pelvic inflammatory disease, toxic shock syndrome (S.aureus), and if present, evaluated for organisms not included in this assay such as N. gonorrhoeae, C. trachomatis, Mobiluncus, Mycoplasma and/or Prevotella. Mixed infections may occur. The performance of this test on patient specimens collected during or immediately after antimicrobial therapy is unknown. The presence or absence of Gwen species, or G. vaginalis cannot be used as a test for therapeutic success or failure. Trichomonas: Vaginal DNA Probe Final 07/04/14- 1137 ML Organism 1 Negative Trichomonas CONTINUED ON NEXT PAGE * ML=Testing performed at [facility] DEPARTMENT OF PATHOLOGY, [address] [place] [address] Vishal Loya M.D. Director [facility] # [id number] Patient: MARTELMELISSA Genie [id number] (Continued) Specimen: [id number] Collected: 07/03/14 Received: 07/03/14 (Continued) Procedure Result Verified Site Trichomonas: Vaginal DNA Probe Final (continued) 07/04/141137 The presence or absence of T. vaginalis cannot be used as a test for therapeutic success or failure. * ML - MAIN LAB ([facility]) . END OF REPORT * ML=Testing performed at Main Lab DEPARTMENT OF PATHOLOGY, [address] [place] [address] Vishal Loya M.D. Director [facility] # [id number] 17 Because ethnic data is not always readily available, this report includes an eGFR for both -Americans and non- Americans. The National Kidney Disease Education Program (NKDEP) does not endorse the use of the MDRD equation for patients that are not between the ages of 18 and 70, are , have extremes of body size, muscle mass, or nutritional status, or are non- or non-. According to the National Kidney Foundation, irrespective of diagnosis, the stage of the disease is based on the level of kidney function: Stage Description GFR(mL/min/1.73 m(2)) 1 Kidney damage with normal or decreased GFR 90 2 Kidney damage with mild decrease in GFR 60-89 3 Moderate decrease in GFR 30-59 4 Severe decrease in GFR 15-29 5 Kidney failure <15 (or dialysis) 18 Reference Range and Interpretation: TnI (ng/mL) Interpretation Less Than 0.03 ng/mL Not supportive of diagnosis of OR 0.03 - 0.50 ng/mL Indeterminate: suggest serial studies if clinically indicated. Greater than 0.5 ng/mL Consistent with diagnosis of OR 19 Test Performed by: [place] [address] Head Waiter/Waitress Banquet: Stone Rodriguez II, M.D., Ph.D. 20 Because ethnic data is not always readily available, this report includes an eGFR for both -Americans and non- Americans. The National Kidney Disease Education Program (NKDEP) does not endorse the use of the MDRD equation for patients that are not between the ages of 18 and 70, are , have extremes of body size, muscle mass, or nutritional status, or are non- or non-. According to the National Kidney Foundation, irrespective of diagnosis, the stage of the disease is based on the level of kidney function: Stage Description GFR(mL/min/1.73 m(2)) 1 Kidney damage with normal or decreased GFR 90 2 Kidney damage with mild decrease in GFR 60-89 3 Moderate decrease in GFR 30-59 4 Severe decrease in GFR 15-29 5 Kidney failure <15 (or dialysis) 21 REFERENCE VALUE 25-HYDROXY D TOTAL (D2+D3) Optimum levels in the healthy population are 20-50, patients with bone disease may benefit from higher levels within this range. Test Performed by: [address] [address] Head Waiter/Waitress Banquet: Oz Pate M.D. 22 Interpretation: 10-19 ng/mL (mild to moderate deficiency) -- REFERENCE VALUE -- 25-HYDROXY D TOTAL (D2+D3) Optimum levels in the healthy population are 20-50, patients with bone disease may benefit from higher levels within this range. Test Performed by: [facility] - [address] [address] Head Waiter/Waitress Banquet: Rahul Moreland III, M.D. 23 Therapeutic concentration: <50 ug/mL Toxic concentration: >120 ug/mL 24 RUN DATE: 10/25/13 LAB LIVE PAGE 1 RUN TIME: [address] [place] [address] Specimen Inquiry Name: MARTEL,MELISSA M : [address]: Cindy Patel MD Acct: [id number] Unit: [id number] AGE: 58 Location: [facility] Re10/24/13 SEX: F Status: REG REF SPEC: [id number] TANIA: 10/24/13-[address]: Cindy Patel MD REQ: [id number] RECD: 10/24/13947 STATUS: SOUT _ ORDERED: IMAGE ANALYSIS, HPV/Thin Prep FINAL DIAGNOSIS Negative for Intraepithelial lesion or Malignancy COMMENTS: Specimen sent to [facility] in [place], [place] on 10/25/13 by [id number] at 1046. Results will be reported separately. A. Ectocervical/Endocervical Specimen Adequacy: Satisfactory of evaluation Transformation zone component identified Patient Information: HPV: High risk HPV DNA testing regardless of pap results. Actual Specimen Date: 10/24/13 Post Menopausal?: Y Previous Abnormal Pap Smears?:N Signed (signature on file) Claudio Zurita MIGUEL (ASCP) 10/25 1106 This Pap test was evaluated with the assistance of the NeuroLogicaPrep Test Imaging System. Due to cytologic findings at the production coordinator microscope, comprehensive manual rescreening by a Api Product Manager may be required. The Pap Smear is a screening test designed to aid in the detection of premalignant and malignant conditions of the uterine cervix. It is not a diagnostic procedure and should not be used as the sole means of detecting cervical cancer. Both false- positive and false- negative reports do occur. Depending on your risk status, a Pap smear shoudl be obtained and evaluated every 1-3 years. END OF REPORT * ML=Testing performed at Main Lab DEPARTMENT OF PATHOLOGY, [address] [place] [address] Vishal Loya M.D. Director [facility] # [id number] 25 RESULT: Ectocervical/Endocervical 26 The following Other High Risk HPV types were not detected: 31, 33, 35, 39, 45, 51, 52, 56, 58, 59, 66, and 68 Test Performed by: [address] [address] Head Waiter/Waitress Banquet: Rahul Moreland III, M.D. 27 FASTING 10 HOUR 28 Desirable <150 Borderline high 150-199 High 200-499 Very High >500 29 Desirable <200 Borderline high 200-239 High >239 30 Low <40 Desirable: 40-60 High: >60 31 Desirable <100 Near Optimal 100-129 Borderline high 130-159 High 160-189 Very High >189 32 Because ethnic data is not always readily available, this report includes an eGFR for both -Americans and non- Americans. The National Kidney Disease Education Program (NKDEP) does not endorse the use of the MDRD equation for patients that are not between the ages of 18 and 70, are , have extremes of body size, muscle mass, or nutritional status, or are non- or non-. According to the National Kidney Foundation, irrespective of diagnosis, the stage of the disease is based on the level of kidney function: Stage Description GFR(mL/min/1.73 m(2)) 1 Kidney damage with normal or decreased GFR 90 2 Kidney damage with mild decrease in GFR 60-89 3 Moderate decrease in GFR 30-59 4 Severe decrease in GFR 15-29 5 Kidney failure <15 (or dialysis) 33 RUN DATE: 12/01/12 LAB LIVE PAGE 1 RUN TIME: 1001 [address] [place], [place] [address] Specimen Inquiry Name: MELISSA MARTEL : [address]: Alfred Green MD Acct: [id number] Unit: [id number] AGE: 57 Location: [facility] Re11/29/12 SEX: F Status: REG REF SPEC: [id number] TANIA: 11/29/[address]: Alfred Green MD REQ: [id number] RECD: 11/29/12 STATUS: COMP _ SOURCE: URINE SPDESC: ORDERED: Urine Culture QUERIES: Med[employer] Number [id number] Procedure Result Verified Site Urine Culture Final 12/01/12- 1001 ML Organism 1 NORMAL DAVID Lutz Count 10-25,000 (Moderate) CFU/ML END OF REPORT * ML=Testing performed at Main Lab DEPARTMENT OF PATHOLOGY, [address] [place] [address] Vishal Loya M.D. Director [facility] Permit #[id number] 34 2+ (>10-30 /hpf) 35 Because ethnic data is not always readily available, this report includes an eGFR for both -Americans and non- Americans. The National Kidney Disease Education Program (NKDEP) does not endorse the use of the MDRD equation for patients that are not between the ages of 18 and 70, are , have extremes of body size, muscle mass, or nutritional status, or are non- or non-. According to the National Kidney Foundation, irrespective of diagnosis, the stage of the disease is based on the level of kidney function: Stage Description GFR(mL/min/1.73 m(2)) 1 Kidney damage with normal or decreased GFR 90 2 Kidney damage with mild decrease in GFR 60-89 3 Moderate decrease in GFR 30-59 4 Severe decrease in GFR 15-29 5 Kidney failure <15 (or dialysis) 36 HDL Interpretation: Undesirable: High Risk: Less than 40 mg/dL Desirable: Low Risk: Greater than 60 mg/dL 37 LDL Interpretation: Low Risk Optimal Level: LDL Less than 100 mg/dL Near or Above Optimal: LDL 100-129 mg/dL Borderline High Risk: LDL 130-159 mg/dL High Risk: LDL 160-189 mg/dL Very High Risk: LDL Greater than 189 mg/dL 38 Anion gap measurement may be of limited value in the presence of any alkalosis, especially in a combined acid base disorder. . 39 Because ethnic data is not always readily available, this report includes an eGFR for both -Americans and non- Americans. The National Kidney Disease Education Program (NKDEP) does not endorse the use of the MDRD equation for patients that are not between the ages of 18 and 70, are , have extremes of body size, muscle mass, or nutritional status, or are non- or non-. According to the National Kidney Foundation, irrespective of diagnosis, the stage of the disease is based on the level of kidney function: Stage Description GFR(mL/min/1.73 m(2)) 1 Kidney damage with normal or decreased GFR 90 2 Kidney damage with mild decrease in GFR 60-89 3 Moderate decrease in GFR 30-59 4 Severe decrease in GFR 15-29 5 Kidney failure <15 (or dialysis) 40 Recommended INR for Patients on Oral Anticoagulants Prophylaxis 2.0 - 3.0 Treatment of thrombosis 2.0 - 3.0 Prevention of embolism 2.0 - 3.0 Prevention of embolism from prosthetic heart valves 2.5 - 3.5 41 DIAGNOSIS,TREATMENT,AND THERAPY MUST BE BASED ON THE INR VALUE ALONE. 42 Anion gap measurement may be of limited value in the presence of any alkalosis, especially in a combined acid base disorder. . 43 Note change in reference range as of 10/13/07. The change was based on recommendations from the [place] [employer]. 44 A metabolite of Naproxen, O-desmethylnaproxen, has been shown to interfere with the Jendrassik-Schlater method for measuring total bilirubin. Samples from patients who have taken Naproxen have shown spurious elevation in total bilirubin levels. 45 Because ethnic data is not always readily available, this report includes an eGFR for both -Americans and non- Americans. The National Kidney Disease Education Program (NKDEP) does not endorse the use of the MDRD equation for patients that are not between the ages of 18 and 70, are , have extremes of body size, muscle mass, or nutritional status, or are non- or non-. According to the National Kidney Foundation, irrespective of diagnosis, the stage of the disease is based on the level of kidney function: Stage Description GFR(mL/min/1.73 m(2)) 1 Kidney damage with normal or decreased GFR 90 2 Kidney damage with mild decrease in GFR 60-89 3 Moderate decrease in GFR 30-59 4 Severe decrease in GFR 15-29 5 Kidney failure <15 (or dialysis) 46 CHOLESTEROL INTERPRETATION: Desirable: Less than 200 MG/DL Borderline-High Risk: 200-239 MG/DL High-Risk: 240 MG/DL and over 47 HDL INTERPRETATION: Undesirable: High Risk: Less than 40 MG/DL Desirable: Low Risk: Greater than 60 MG/DL 48 LDL INTERPRETATION: Low Risk Optimal Level: LDL Less than 100 MG/DL Near or Above Optimal: LDL 100-129 MG/DL Borderline High Risk: LDL 130-159 MG/DL High Risk: LDL 160-189 MG/DL Very High Risk: LDL Greater than 189 MG/DL 49 Anion gap measurement may be of limited value in the presence of any alkalosis, especially in a combined acid base disorder. . 50 Note change in reference range as of 10/13/07. The change was based on recommendations from the [place] [employer]. 51 Please note change in reference range effective 07 . 52 A metabolite of Naproxen, O-desmethylnaproxen, has been shown to interfere with the Jendrassik-Rivka method for measuring total bilirubin. Samples from patients who have taken Naproxen have shown spurious elevation in total bilirubin levels. 53 Because ethnic data is not always readily available, this report includes an eGFR for both -Americans and non- Americans. The National Kidney Disease Education Program (NKDEP) does not endorse the use of the MDRD equation for patients that are not between the ages of 18 and 70, are , have extremes of body size, muscle mass, or nutritional status, or are non- or non-. According to the National Kidney Foundation, irrespective of diagnosis, the stage of the disease is based on the level of kidney function: Stage Description GFR(mL/min/1.73 m(2)) 1 Kidney damage with normal or decreased GFR 90 2 Kidney damage with mild decrease in GFR 60-89 3 Moderate decrease in GFR 30-59 4 Severe decrease in GFR 15-29 5 Kidney failure <15 (or dialysis) 54 Recommended INR for Patients on Oral Anticoagulants Prophylaxis 2.0 - 3.0 Treatment of thrombosis 2.0 - 3.0 Prevention of embolism 2.0 - 3.0 Prevention of embolism from prosthetic heart valves 2.5 - 3.5 55 DIAGNOSIS,TREATMENT,AND THERAPY MUST BE BASED ON THE INR VALUE ALONE. 56 PLEASE NOTE NEW REFERENCE RANGE EFFECTIVE 08. 57 3HR GTT FAST URINE FSTNG URINE GLU from [id number]. 3HR GTT 3HR SERUM 3HR GLUCOSE from 0730:[id number]. 3HR GTT 3HR SERUM 3HR GLUCOSE from 0730:[id number]. 58 REFERENCE RANGE: 20-50 MG/DL ABOVE FASTING 59 REFERENCE RANGE: 5-15 MG/DL ABOVE FASTING 60 REFERENCE RANGE: FASTING OR 10 MG/DL BELOW 61 FINAL: NO GROWTH DAY 2 (<1,000 CFU/mL) Procedures Date CPT Code Description Status Comment 11/25/2015 Bone Mineral Density Test Completed 11/21/2015 Mammogram Completed 11/15/2014 Mammogram Completed 11/07/2014 Mammogram Completed 10/31/2013 Mammogram Completed 10/26/2013 Bone Mineral Density Test Completed 10/23/2012 Colonoscopy Completed Document: 11/29/12 - Routine Visit 09/06/2012 Mammogram Completed 11/18/2010 [id number] Left Heart Cath. Incl S/I Completed Coronaries, Angio S/I V Gram If Done 11/12/2010 [id number] EKG Tracing & Completed Interpretation 02/22/2010 Mammogram Completed Document: 08/29/12 - Routine Visit 07/25/2009 36592 EKG Tracing & Completed Interpretation Encounters Type Date Location Provider CPT E/M Dx Office Visit 10/06/2016 1:20p [facility] Internal Medicine Cindy Patel M.D. 31590 E78.5 - [place] J45.40 F32.89 Office Visit 06/17/2016 11:00a [facility] [place] [address] N64.59 [facility] Office Visit 06/11/2016 10:50a [facility] Internal Medicine Cindy Patel 67210 M54.5 - Don[place] Ocampo N64.9 Office Visit 04/20/2016 9:40a [facility] Internal Medicine Kasi Levin 64864 J45.41 - [place] Ocampo Office Visit 03/23/2016 12:10p [facility] Internal Medicine Cindy Patel 65802 J45.41 - [place] Ocampo F43.29 Office Visit 01/06/2016 10:10a [facility] Internal Medicine Cindy Patel 60414 M25.551 - [place] Ocampo M72.2 M77.32 E78.5 E55.9 Office Visit 11/12/2015 1:00p [facility] Internal Medicine Cindy Patel 15578 Z00.01 - [place] Ocampo E78.5 E55.9 Z11.4 Z11.59 J45.41 N63 M85.89 Office Visit 10/07/2015 7:30a [facility] Internal Medicine Cindy Patel 40203 S53.402A - Jakub Ocampo S53.402A Office Visit 08/20/2015 2:40p [facility] Internal Medicine Shellie Montano M.D. 11484 G44.89 - Jakbu F41.9 Office Visit 05/21/2015 3:00p [facility] 24880 M72.2 Megan Ocampo M65.872 Office Visit 05/13/2015 7:50a [facility] Internal Medicine Cindy Patel M.D. 79901 M72.2 - [place] J45.20 Office Visit 05/07/2015 9:40a [facility] Internal Medicine Shellie Montano M.D. 29778 M72.2 - [place] J45.20 Office Visit 10/30/2014 1:10p [facility] Internal Medicine Cindy Patel M.D. 70446 v70.0 - [place] V76.10 719.49 V03.82 493.10 268.9 719.44 Office Visit 07/03/2014 10:50a [facility] Internal Medicine Cindy Patel M.D. 71509 721.2 - [place] 623.5 Office Visit 06/19/2014 1:30p [facility] Internal Medicine Cindy Patel M.D. 40612 847.9 - [place] 354.0 724.1 Office Visit 05/22/2014 2:40p [facility] Internal Medicine Shellie Montano M.D. 36467 692.0 - [place] Office Visit 04/27/2014 2:40p [facility] Internal Medicine Shellie Montano M.D. 32309 692.0 - [place] 704.09 300.09 300.00 Office Visit 01/05/2014 2:00p [facility] [place] [address] 847.9 [place] 311 719.41 Office Visit 12/26/2013 10:30a [facility] Internal Medicine Cindy Patel M.D. 06733 847.9 - [place] 268.9 Office Visit 10/24/2013 1:10p [facility] Internal Medicine Cindy Patel 59959 V72.31 - Jakub Ocampo 272.2 V76.10 V76.2 V49.81 493.10 V06.1 847.9 692.89 V03.82 Office Visit 07/31/2013 3:10p [facility] Internal Medicine Cindy Patel 68859 726.32 - Jakub Ocampo 847.9 848.8 272.2 477.9 493.90 Office Visit 03/23/2013 3:00p [facility] Internal Medicine Shellie Montano M.D. 27589 461.1 - [place] Office Visit 11/29/2012 8:00a [facility] Internal Medicine Alfred Green, 95916 599.0 - [place] M.DGisela 493.90 616.10 278.00 728.79 Office Visit 08/29/2012 9:00a [facility] Internal Medicine Alfred Green, 86210 272.2 - [place] M.D. 311 493.90 278.00 V70.0 466.0 V76.10 V76.41 Office Visit 12/03/2010 11:20a [facility] Ana Perez D.O. 08368 780.2 786.50 493.00 Office Visit 11/12/2010 9:40a [facility] Ana Perez D.O. 88512 786.50 780.2 794.31 Office Visit 07/25/2009 11:00a DO Not Use [facility] [place], [address] 611.79 [place] M.D. 493.00 Office Visit 04/24/2009 9:40a DO Not Use [facility] [place], [address] 724.2 [place] M.D. 611.79 Office Visit 03/12/2009 2:40p DO Not Use [facility], [place], [address] 493.00 [place] M.DGisela 311 272.4 V04.81 Office Visit 12/03/2008 11:20a DO Not Use [facility] At [place], [place], [address] 724.2 [place] M.D. 682.8 616.10 Office Visit 10/25/2008 1:00p DO Not Use [facility] At [place], [place], [address] 715.36 [place] M.D. Office Visit 09/24/2008 11:40a DO Not Use [facility] [place], [place], [address] 218.9 [place] M.D. 493.00 311 Office Visit 09/17/2008 10:00a DO Not Use [facility] [place], [address] 752.3 [place] M.D. 789.04 493.00 311 Plan of Care 01/27/2017 - Cindy Patel M.D.Z00.00 Encntr for general adult medical exam w/ o abnormal findingsComments:discussed you should check with your insurance and get the shingles vaccine you are due for fasting blood workZ12.31 Encntr screen mammogram for malignant neoplasm of breastNew Xrays:MG Screening FkavcuvduA44.5 Hyperlipidemia, vxfzksgkxagZ32.9 Obesity, unspecifiedComments:Advised normal caloric intake Increase Activity level, emphasizing on weight loss and zbqdjbG31.3 Sebaceous cystComments:the cyst appears to have no infection right now , keep the area clean, avoid shaving, and if it becomes infected again, you can have it checked out and yowjqtoR53.8 Other specified noninflammatory disorders of vaginaNew Labs:Gardnerella/Yeast: Vaginal Dna
[2017-02-16 07:50] VITALS: BP 132/79
[2017-02-16] MEDS ORDERED: Ibuprofen TAB* 600 MG PO ONE (07:59)
[2017-02-16] MEDS ORDERED: Ibuprofen TAB* 600 MG ONE (08:01)
--- NOTE | 2017-02-16 08:08 | UC ---
Elbow Pain - HPI Summary HPI Summary: 61 yo [employer] [place] employee was leaving work yesterday when she slipped and fell on ice in parking lot landed on right elbow complains of both right elbow and right shoulder pain - History of Current Complaint Chief Complaint: UCUpperExtremity Stated Complaint: RIGHT ELBOW INJURY Time Seen by Provider: 02/16/17 07:50 Hx Obtained From: Patient Mechanism of Injury: slip and fall Onset/Duration: Hours Severity Initially: Severe Severity Currently: Severe Pain Intensity: 9 Pain Scale Used: 0-10 Numeric Location Of Pain: Is Discrete @ - olecranon and anterior shoulder Character: Aching, Throbbing Aggravating Factor(s): Movement Alleviating Factor(s): Rest Associated Signs And Symptoms: Positive: Negative - Allergies/Home Medications Allergies/Adverse Reactions: Allergies Allergy/AdvReac Type Severity Reaction Status Date / Time Codeine Allergy Rash Verified 02/16/17 07:50 Home Medications: Home Medications Amitriptyline TAB* [Elavil TAB*] 10 mg PO BEDTIME 02/16/17 [History Confirmed ] Atorvastatin* [Lipitor*] 10 mg PO DAILY 02/16/17 [History Confirmed 02/16/17] PMH/Surg Hx/FS Hx/Imm Hx Previously Healthy: Yes Endocrine History: Dyslipidemia Other History Of: Anticoagulant Therapy - She took an ASA today (325 mg), but she does not take it regularly. Negative For: HIV, Hepatitis B, Hepatitis C - Surgical History Surgical History: Yes Surgery Procedure, Year, and Place: bilat breast reduction; hysterectomy; right inguinal hernia repair; LEFT LEG VERICOSE VEINS - Family History Known Family History: Positive: Cardiac Disease, Hypertension - Father, Diabetes - Social History Alcohol Use: Occasionally Substance Use Type: None Smoking Status (MU): Never Smoked Tobacco Have You Smoked in the Last Year: No Review of Systems Constitutional: Negative Skin: Negative Eyes: Negative ENT: Negative Respiratory: Negative Cardiovascular: Negative Gastrointestinal: Negative Genitourinary: Negative Motor: Negative Neurovascular: Negative Musculoskeletal: Arthralgia Neurological: Negative Psychological: Negative Is Patient Immunocompromised?: No All Other Systems Reviewed And Are Negative: Yes Physical Exam Triage Information Reviewed: Yes Appearance: Well-Appearing, No Pain Distress, Well-Nourished Vital Signs: Initial Vital Signs Temp 97.8 F 02/16/17 07:41 Pulse 69 02/16/17 07:41 Resp 16 02/16/17 07:41 BP 132/79 02/16/17 07:41 Pulse Ox 98 02/16/17 07:41 Vital Signs Reviewed: Yes Eyes: Positive: Conjunctiva Clear ENT: Positive: Hearing grossly normal. Negative: Nasal congestion, Nasal drainage, Trismus, Muffled voice, Hoarse voice Neck: Positive: Supple, Nontender Respiratory: Positive: Lungs clear, Normal breath sounds Cardiovascular: Positive: RRR, No Murmur Musculoskeletal: Positive: ROM Intact, No Edema Neurological: Positive: Alert Psychological Exam: Normal Skin Exam: Normal Diagnostics - Radiology No standard instances Xray Interpretation: No Acute Changes - 1. Mild acromioclavicular and glenohumeral joint osteoarthritis. 2. 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 5 mm loose body at the anterior joint recess versus hypertrophic bone formation at the coronoid process of the ulna. This may limit range of motion in flexion. 3. Negative for fracture Radiology Interpretation Completed By: Radiologist Elbow Pain Course/Dx - Differential Dx/Diagnosis Provider Diagnoses: Right shoulder and elbow injury Discharge - Discharge Plan Condition: Stable Disposition: HOME Forms: *Work Release Referrals: Ana Cota MD [Medical Doctor] - As Soon As Possible Additional Instructions: sling ice shoulder and elbow twice daily You need to see an orthopedist Your xr showed no fracture but this does not rule out a tendon or cartilage injury
--- NOTE | 2017-02-16 08:44 | RAD ---
INDICATION: RIGHT shoulder and elbow pain post fall yesterday. COMPARISON: No relevant prior exams available on the [facility] for comparison. TECHNIQUE: AP, lateral, and oblique views RIGHT elbow. Internal rotation AP, external rotation Grashey, scapular Y, axillary views RIGHT shoulder Report: RIGHT shoulder: Normal acromioclavicular and glenohumeral joint alignment. Negative for fracture. Mild osteophytosis at the acromioclavicular and glenohumeral joints. Negative for significant glenohumeral joint space narrowing. Negative for stigmata of calcific tendinopathy. Unremarkable soft tissue contours. RIGHT elbow: Normal articular alignment. Negative for fat pad displacement to indicate joint effusion. No cortical disruption or suspicious trabecular irregularity to suggest fracture. Mild osteophytosis throughout. 5 mm loose body at the anterior joint recess versus hypertrophic bone formation at the coronoid process of the ulna. This may limit range of motion in flexion. Unremarkable soft tissue contours. IMPRESSION: 1. Mild acromioclavicular and glenohumeral joint osteoarthritis. 2. 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 5 mm loose body at the anterior joint recess versus hypertrophic bone formation at the coronoid process of the ulna. This may limit range of motion in flexion. 3. Negative for fracture.
--- NOTE | 2017-02-16 08:44 | RAD ---
INDICATION: RIGHT shoulder and elbow pain post fall yesterday. COMPARISON: No relevant prior exams available on the [facility] PACS for comparison. TECHNIQUE: AP, lateral, and oblique views RIGHT elbow. Internal rotation AP, external rotation Grashey, scapular Y, axillary views RIGHT shoulder Report: RIGHT shoulder: Normal acromioclavicular and glenohumeral joint alignment. Negative for fracture. Mild osteophytosis at the acromioclavicular and glenohumeral joints. Negative for significant glenohumeral joint space narrowing. Negative for stigmata of calcific tendinopathy. Unremarkable soft tissue contours. RIGHT elbow: Normal articular alignment. Negative for fat pad displacement to indicate joint effusion. No cortical disruption or suspicious trabecular irregularity to suggest fracture. Mild osteophytosis throughout. 5 mm loose body at the anterior joint recess versus hypertrophic bone formation at the coronoid process of the ulna. This may limit range of motion in flexion. Unremarkable soft tissue contours. IMPRESSION: 1. Mild acromioclavicular and glenohumeral joint osteoarthritis. 2. 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 5 mm loose body at the anterior joint recess versus hypertrophic bone formation at the coronoid process of the ulna. This may limit range of motion in flexion. 3. Negative for fracture.
== END 2017-02-16 09:14 | disposition home or self-care (01) ==
LOC: UCEAST 07:39
DX: S59.901A Unspecified injury of right elbow, initial encounter (principal); E78.5 Hyperlipidemia, unspecified; S49.91XA Unspecified injury of right shoulder and upper arm, initial encounter; W00.0XXA Fall on same level due to ice and snow, initial encounter; Y93.01 Activity, walking, marching and hiking; Y92.481 Parking lot as the place of occurrence of the external cause; Y99.9 Unspecified external cause status; Z72.89 Other problems related to lifestyle
CPT/HCPCS: 99212; A9270-GY; G0463

== ENCOUNTER → 2017-04-12 08:54 | Emergency (ER) | payer BC, OTHER ==
[~2017-04-12 08:54] MED LIST: NS 0.9% 1000 ML* 1,000 ML IV ONE; Ondansetron INJ* 2 MG/ML VIAL IV ONE
[2017-04-12 09:24] VITALS: BP 140/86
== END | disposition left against medical advice (07) ==
LOC: ED 08:54
DX: R10.9 Unspecified abdominal pain (principal); Z53.20 Procedure and treatment not carried out because of patient's decision for unspecified reasons
CPT/HCPCS: 99282; J2405

== ENCOUNTER 2017-04-14 08:25 | Emergency (ER) | payer SELFPAY ==
--- NOTE | 2017-04-14 10:06 | UC ---
Eliceo Chaidez Gabriel, scribed for Keturah Severino MD on 04/14/17 at 0958 . Abdominal Pain Female HPI - HPI Summary HPI Summary: This patient is a 61 year old F [place] [facility] [place] a chief complaint of ABD pain since 04-12-17 that has gotten worse today. The patient rates the intermittent abdominal pain 6/10 in severity and pressure in LLQ. Symptoms alleviated by belching and Pepto-Bismol (temporarily). No motrin or apap. Patient reports nausea and decreased appetite. Patient denies vomiting, diarrhea , constipation, blood in stool, and dysuria. + urinary frequency No vaginal discharge, odor. She went to work today but was sent home. Last colonoscopy was 5 years ago - unknown diverticulosis no sick contact. No fever, chills Patients medication reviewed during this visit. - History of Current Complaint Chief Complaint: UCAbdominalPain Stated Complaint: NAUSEA Time Seen by Provider: 04/14/17 09:49 Hx Obtained From: Patient Onset/Duration: Lasting Days, Still Present Timing: Constant Severity Initially: Moderate Severity Currently: Moderate Pain Intensity: 6 Pain Scale Used: 0-10 Numeric Location: Suprapubic Radiates: Yes Radiates to: Back Alleviating Factor(s): Other: - belching and Pepto-Bismol (temporarily). Associated Signs and Symptoms: Positive: Other: - vomiting, diarrhea, constipation, blood in stool, and dysuria. Allergies/Adverse Reactions: Allergies Allergy/AdvReac Type Severity Reaction Status Date / Time codeine Allergy Hives Verified 04/12/17 09:11 PMH/Surg Hx/FS Hx/Imm Hx Previously Healthy: Yes Cardiovascular History: Other Other Cardiovascular History: HLD Respiratory History: Asthma Other History Of: Anticoagulant Therapy - She took an ASA today (325 mg), but she does not take it regularly. Negative For: HIV, Hepatitis B, Hepatitis C - Surgical History Surgical History: Yes Surgery Procedure, Year, and Place: bilat breast reduction; hysterectomy; right inguinal hernia repair; LEFT LEG VERICOSE VEINS - Family History Known Family History: Positive: Cardiac Disease, Hypertension - Father, Diabetes - Social History Occupation: Employed Full-time Lives: With Family Alcohol Use: Occasionally Substance Use Type: None Smoking Status (MU): Never Smoked Tobacco Have You Smoked in the Last Year: No Review of Systems Constitutional: Other - decreased appetite Gastrointestinal: Abdominal Pain, Nausea Genitourinary: Frequency All Other Systems Reviewed And Are Negative: Yes Physical Exam Triage Information Reviewed: Yes Appearance: Well-Appearing, No Pain Distress, Well-Nourished Vital Signs: Initial Vital Signs Temp 97.2 F 04/14/17 08:49 Pulse 60 04/14/17 08:49 Resp 16 04/14/17 08:49 BP 133/88 04/14/17 08:49 Pulse Ox 98 04/14/17 08:49 Vital Signs Reviewed: Yes Eye Exam: Normal Eyes: Positive: Conjunctiva Clear ENT Exam: Normal ENT: Positive: Pharynx normal Dental Exam: Normal Neck exam: Normal Neck: Positive: Supple, Nontender Respiratory Exam: Normal Respiratory: Positive: Chest non-tender, Lungs clear, Normal breath sounds, No respiratory distress, No accessory muscle use Cardiovascular Exam: Normal Abdomen Description: Positive: No Organomegaly, Soft. Negative: Nontender - mild LLQ pain with direct palp. Mild suprapubic soft + BS No CVA, CVA Tenderness (R), CVA Tenderness (L) Bowel Sounds: Positive: Present Musculoskeletal Exam: Normal Neurological Exam: Normal Psychological Exam: Normal Skin Exam: Normal Diagnostics - Radiology CT ABD/Pelvis Radiology Interpretation Completed By: Radiologist - Myomatous changes of the uterus. Scattered diverticula in the sigmoid colon without definite evidence of diverticulitis. No hernias are identified. Dr. Severino has reviewed this report. Re-Evaluation - Re-Evaluation First Eval Comment: reviewed urine and CT with pt. will treat with Augmentin for UTI and possible early divertic. work note. APAP. clears to bland. recommend f/u with PCP this week. return precautions discussed in detail with plt. states understanding and agreement with plan Abd Pain Female Course/Dx - Course Course Of Treatment: BP noted and advised to follow up with PCP. Pt present with nausea, llq abdominal pain x 2 days. pt with suprapubic and LLQ pain - mild - on exam. Pt otherwise well appearing. will cehck urine and CT. reassess. pt comfortable and in agreement with plan - Differential Dx/Diagnosis Provider Diagnoses: Elevated blood pressure without a previous diagnoses of hypertension. abdominal pain. uti. early diverticulitis Discharge - Discharge Plan Condition: Stable Disposition: HOME Prescriptions: Amoxicillin/Clavulanate TAB* [Augmentin TAB 875*] 875 mg PO BID #20 tab Patient Education Materials: Diverticulosis (ED), Urinary Tract Infection in Women (ED) Forms: *Work Release Referrals: Cindy Patel MD [Primary Care Provider] - Additional Instructions: Take antibiotics as prescribed For the first 6 hours, eat and drink clears (water, mona jo, soup broth, jello, popsicles, Gatorade). If you tolerate this okay, add bland foods such as dry toast, scrambled eggs, crackers. Wait until you are feeling better for 24 hours before eating spicy food, acidic food, tomato based food, fried food. Okay to take tylenol every 6-8 hours for pain or fever Contact your doctor to schedule a follow-up appointment. If your symptoms are not improved, you develop fevers, increased pain, vomiting you should go to the emergency department for further evaluation and treatment Your blood pressure was elevated during today's visit. Please follow up with your primary care provider in 1-2 weeks. The documentation as recorded by the Eliceo robles Gabriel accurately reflects the service I personally performed and the decisions made by me, Keturah Severino MD.
--- NOTE | 2017-04-14 10:45 | RAD ---
Indication: Diverticulitis, left lower quadrant pain. CT of the abdomen and pelvis was performed without oral or IV contrast administration. Coronal and sagittal reconstructed images were obtained. No prior study is available for comparison. The lung bases demonstrate no pleural fluid, nodules or masses. Heart is enlarged without evidence of pericardial effusion. Liver is normal in size. No focal lesions or intrahepatic ductal dilatation is noted. The spleen is normal in size. No adrenal masses are noted. The kidneys demonstrate no hydronephrosis. Upper pole cyst in the right kidney measures up to 4.2 cm. No hydronephrosis is noted. The retroperitoneal adenopathy is noted. No dilated loops of bowel are noted. The colon is filled with stool. CT of the pelvis demonstrates myomatous changes of the uterus. No definite adnexal masses are noted. Stool is present throughout the colon. No definite evidence of diverticulitis is noted. There may be scant diverticula noted in the sigmoid colon. No adnexal masses are noted. No abnormal fluid collections are noted. The appendix is visualized and appears normal. No small bowel dilatation is noted. No hernias are noted. The bony structures are grossly unremarkable. IMPRESSION: Myomatous changes of the uterus. Scattered diverticula in the sigmoid colon without definite evidence of diverticulitis. No hernias are identified.
[2017-04-14 11:31] VITALS: BP 142/88
== END 2017-04-14 11:25 | disposition home or self-care (01) ==
LOC: UCEAST 08:25
DX: R10.32 Left lower quadrant pain (principal); N39.0 Urinary tract infection, site not specified; K57.30 Diverticulosis of large intestine without perforation or abscess without bleeding; R03.0 Elevated blood-pressure reading, without diagnosis of hypertension; R11.0 Nausea; E78.5 Hyperlipidemia, unspecified; J45.909 Unspecified asthma, uncomplicated; Z79.82 Long term (current) use of aspirin; Z88.5 Allergy status to narcotic agent
CPT/HCPCS: 74176; 81003; 87086; 99212; G0463

== ENCOUNTER 2017-05-03 08:15 | Emergency (ER) | payer SELFPAY ==
--- NOTE | 2017-05-03 09:35 | RAD ---
HISTORY: Left calf pain and swelling TECHNIQUE: Multiple transverse and longitudinal ultrasound images were obtained of the veins of the left lower extremity using grayscale, color Doppler, and spectral Doppler imaging with and without compression and with augmentation. FINDINGS: VEINS: The common femoral vein, deep femoral vein, femoral vein and popliteal vein are compressible throughout their course, with normal flow on color Doppler imaging and normal response to augmentation on spectral Doppler imaging. SOFT TISSUES: At the medial posterior popliteal fossa there is an anechoic and avascular structure measuring 0.6 x 2.4 cm in the axial plane and 4.3 cm in length most consistent with a Romero's cyst. IMPRESSION: 1. No sonographic evidence of deep vein thrombosis. 2. Romero's cyst noted.
--- NOTE | 2017-05-03 09:57 | RAD ---
Indication: Right knee tenderness. 4 views of the right knee demonstrates degenerative changes of the patellofemoral joint. Mild degenerative changes of the lateral compartment is noted. No fracture is noted. IMPRESSION: Degenerative changes of the patellofemoral joint. Mild degenerative changes of the lateral compartment.
--- NOTE | 2017-05-03 10:01 | RAD ---
Indication: Right leg injury. 2 views of the right leg demonstrates no fracture. No other bone or joint abnormality is identified. IMPRESSION: No fracture of the right leg is noted.
[2017-05-03 10:29] VITALS: BP 151/90
--- NOTE | 2017-05-03 12:31 | UC ---
Arik Chaidez Jennifer, scribed for Radha Nielsen DO on 05/03/17 at 0841 . Knee Pain HPI - HPI Summary HPI Summary: The pt is a 61 y/o female who complains of right knee pain after a fall three days ago. Pt reports she fell forward but she felt like her leg went backwards. Pt complains her whole right leg is swollen in the back and feels bigger than the left leg. The pain is rated at an 8/10 and is described as a dull pain. Standing, walking, walking up stairs, and weight bearing aggravate the pain. Pt has been taking Ibuprofen for the pain but it has not been helping much. Pt denies ankle pain, hip pain. Pt additionally denies fever, sweats, vomiting, abdominal pain, chest pain, shortness of breath, and rash. - History of Current Complaint Chief Complaint: UCLowerExtremity Stated Complaint: LEG INJURY Time Seen by Provider: 05/03/17 08:28 Hx Obtained From: Patient Onset/Duration: Sudden Onset, Lasting Days - three days, Still Present Severity Initially: Moderate Severity Currently: Moderate Pain Intensity: 8 Pain Scale Used: 0-10 Numeric Character: Dull Aggravating Factor(s): Movement, Weight Bearing, Prolonged Standing, Stairs Alleviating Factor(s): Nothing Associated Signs And Symptoms: Positive: Swelling - Allergies/Home Medications Allergies/Adverse Reactions: Allergies Allergy/AdvReac Type Severity Reaction Status Date / Time codeine Allergy Hives Verified 05/03/17 08:30 Home Medications: Home Medications Ibuprofen 400 mg PO Q6HR PRN 05/03/17 [History Confirmed 05/03/17] PMH/Surg Hx/FS Hx/Imm Hx Respiratory History: Asthma Other History Of: Anticoagulant Therapy - She took an ASA today (325 mg), but she does not take it regularly. Negative For: HIV, Hepatitis B, Hepatitis C - Surgical History Surgical History: Yes Surgery Procedure, Year, and Place: bilat breast reduction; hysterectomy; right inguinal hernia repair; LEFT LEG VERICOSE VEINS - Family History Known Family History: Positive: Cardiac Disease, Hypertension - Father, Diabetes , Other - Blood clot - father - Social History Alcohol Use: Occasionally Substance Use Type: None Smoking Status (MU): Never Smoked Tobacco Have You Smoked in the Last Year: No Review of Systems Constitutional: Negative - Fever, sweats Skin: Negative - Rash Respiratory: Negative - Shortness of rbeath Cardiovascular: Negative - Chest pain Gastrointestinal: Negative - Abdominal pain, vomiting Musculoskeletal: Negative - Hip pain, ankle pain, Other: - Right knee pain, right leg swelling All Other Systems Reviewed And Are Negative: Yes Physical Exam - Summary Physical Exam Summary: Appearance: Well-Appearing, No Pain Distress, Well-Nourished Eyes: conjunctiva clear, no discharge ENT: Hearing grossly normal, no muffled/hoarse voice. Neck: Normal, Supple Respiratory/Lung Sounds: Lungs clear, Normal breath sounds, No respiratory distress, No accessory muscle use Cardiovascular: RRR, No murmur Musculoskeletal: Tenderness over the joint line, proximal fibula, and patella. Pain with lateral stress. Positive McMurrays Test, test for the cruciate ligament was inconclusive. Neurological: Alert, muscle tone normal Psychiatric:Normal, age appropriate behavior Skin: Normal, Warm, Dry, Normal color Triage Information Reviewed: Yes Vital Signs: Initial Vital Signs Temp 97.4 F 05/03/17 08:27 Pulse 57 05/03/17 08:27 Resp 16 05/03/17 08:27 BP 130/80 05/03/17 08:27 Pulse Ox 100 05/03/17 08:27 Vital Signs Reviewed: Yes Diagnostics - Laboratory Diagnostic Studies Completed/Ordered: Venous Doppler Study. Interpreted by a radiologist. IMPRESSION: 1. No sonographic evidence of deep vein thrombosis. 2. Romero's cyst noted. Dr. Nielsen has reviewed this report. - Radiology Knee XR Xray Interpretation: Positive (See Comments) - Degenerative changes of the patellofemoral joint. Mild degenerative changes of the lateral compartment. Dr. Nielsen has reviewed this report. Radiology Interpretation Completed By: Radiologist Lower Extremity XR Xray Interpretation: No Acute Changes - No fracture of the right leg is noted. Dr. Nielsen has reviewed this report. Radiology Interpretation Completed By: Radiologist Knee Pain Course/Dx - Course Course Of Treatment: Patient will be discharged with knee immobilizer and follow up from PCP. The patient is agreeable with this plan. Medications reviewed. Allergies reviewed. High blood pressure noted. - Differential Dx/Diagnosis Provider Diagnoses: Knee sprain, Romero's cyst, Contusion, Possible internal derangement of the knee, elevated bp withou dx of htn Discharge - Discharge Plan Condition: Stable Disposition: HOME Patient Education Materials: Knee Sprain (ED), Bakers Cyst (ED), Knee Immobilizer (ED) Forms: *Work Release Referrals: Cindy Patel MD [Primary Care Provider] - 2 Days Jasvir Salas MD [Medical Doctor] - (follow up in 2-4 days) Additional Instructions: Your history and exam is suspicious for possible internal derangement of the knee. So, you will need follow up with an orthopedic provider to further evaluate your injury. The documentation as recorded by the Arik robles Jennifer accurately reflects the service I personally performed and the decisions made by , Radha Nielsen DO.
== END 2017-05-03 10:33 | disposition home or self-care (01) ==
LOC: UCEAST 08:15
DX: S83.91XA Sprain of unspecified site of right knee, initial encounter (principal); S80.01XA Contusion of right knee, initial encounter; W19.XXXA Unspecified fall, initial encounter; Y93.9 Activity, unspecified; Y92.9 Unspecified place or not applicable; M71.21 Synovial cyst of popliteal space [Baker], right knee; R03.0 Elevated blood-pressure reading, without diagnosis of hypertension; M79.661 Pain in right lower leg; J45.909 Unspecified asthma, uncomplicated; Z88.5 Allergy status to narcotic agent
CPT/HCPCS: 99213; G0463

== ENCOUNTER 2018-11-28 07:56 | Emergency (ER) | payer BC ==
--- NOTE | 2018-11-28 08:01 | UC ---
Knee Pain HPI - HPI Summary HPI Summary: 63 yo female presents with LEFT knee pain. She tells me that 2 days ago she noticed left knee pain and swelling. She has tried to rest and elevate her knee , but has not had much improvement. Took advil with little change. 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 She denies injury, numbness, or tingling. - History of Current Complaint Stated Complaint: KNEE SWELLING Time Seen by Provider: 11/28/18 08:01 Hx Obtained From: Patient Onset/Duration: Sudden Onset Severity Initially: Moderate Severity Currently: Moderate Pain Intensity: 6 Pain Scale Used: 0-10 Numeric - Allergies/Home Medications Allergies/Adverse Reactions: Allergies Allergy/AdvReac Type Severity Reaction Status Date / Time codeine Allergy Hives Verified 11/28/18 08:06 PMH/Surg Hx/FS Hx/Imm Hx Endocrine History: Dyslipidemia Respiratory History: Asthma Other History Of: Anticoagulant Therapy - She took an ASA today (325 mg), but she does not take it regularly. Negative For: HIV, Hepatitis B, Hepatitis C - Surgical History Surgical History: Yes Surgery Procedure, Year, and Place: bilat breast reduction; hysterectomy; right inguinal hernia repair; LEFT LEG VERICOSE VEINS - Family History Known Family History: Positive: Cardiac Disease, Hypertension - Father, Diabetes , Other - Blood clot - father - Social History Alcohol Use: Occasionally Substance Use Type: None Smoking Status (MU): Never Smoked Tobacco Have You Smoked in the Last Year: No Review of Systems All Other Systems Reviewed And Are Negative: No Constitutional: Positive: Negative Skin: Positive: Negative Respiratory: Positive: Negative Cardiovascular: Positive: Negative Gastrointestinal: Positive: Negative Neurovascular: Positive: Negative Musculoskeletal: Positive: Other: - Left knee pain and swelling Neurological: Positive: Negative Psychological: Positive: Negative Physical Exam - Summary Physical Exam Summary: GENERAL: NAD. WDWN. No pain distress. SKIN: No rashes, sores, lesions, or open wounds. CHEST: No accessory muscle use. Breathing comfortably and in no distress. CV: Pulses intact popliteal, PT, and DP. Cap refill <2seconds MSK: LEFT KNEE: Moderate edema about entire knee. Palpable cyst posterior knee approx 2.0cm. FROM. Strength 5/5. No patella apprehension. Negative Yahir, A/ P drawer, Dharmesh, and varus/valgus stress. NEURO: Alert. Sensations intact and symmetric B/L LEs PSYCH: Age appropriate behavior. Triage Information Reviewed: Yes Vital Signs: Vital Signs: Temp Pulse Resp BP Pulse Ox 98.1 F 72 18 143/81 95 11/28/18 08:01 11/28/18 08:01 11/28/18 08:01 11/28/18 08:01 11/28/18 08:01 Vital Signs Reviewed: Yes Diagnostics - Radiology Knee XR Radiology Interpretation Completed By: Radiologist Summary of Radiographic Findings: IMPRESSION: 1. SMALL JOINT EFFUSION. 2. SEVERE OSTEOARTHRITIC CHANGE IN THE PATELLOFEMORAL COMPARTMENT. Knee Pain Course/Dx - Course Course Of Treatment: XR as above. Suspect flare of chronic arthritis. Palpable bump posterior knee likely hand's cyst. istop: Reference #: [id number] She is requesting a knee immobilizer to use for comfort. Advised to RICE and continue advil. Strongly recommend f/u with Orthopedics for further treatment - Differential Dx/Diagnosis Provider Diagnosis: Knee swelling Discharge ED - Sign-Out/Discharge Documenting (check all that apply): Patient Departure All imaging exams completed and their final reports reviewed: Yes - Discharge Plan Condition: Stable Disposition: HOME Prescriptions: Cyclobenzaprine TAB* [Flexeril 10 MG TAB*] 10 mg PO BID PRN #14 tab PRN Reason: Pain - Mild HYDROcodone/ACETAMIN 5-325 MG* [[place] 5-325 TAB*] 1 tab PO BEDTIME PRN #5 tab MDD 1 PRN Reason: Pain - Severe Patient Education Materials: Osteoarthritis (ED), Swollen Knee Joint (ED) Forms: *Work Release Referrals: Cindy Patel MD [Primary Care Provider] - Myriam Lal MD [Medical Doctor] - As Soon As Possible Additional Instructions: If you develop a fever, shortness of breath, chest pain, new or worsening symptoms - please call your PCP or go to the ED immediately. Your blood pressure was high at todays visit. Please see your primary provider within 4 weeks for recheck and re-evaluation Your knee X-Ray shows significant arthritis. I recommend that you call Orthopedics at the number below to schedule an appointment for further treatment - Billing Disposition and Condition Condition: STABLE Disposition: Home
--- OUTSIDE RECORDS SUMMARY | 2018-11-28 08:02 | XMS REPORT | Continuity of Care Document ---
:1955 External Reference #:[id number] Author Name Cindy Patel M.D. (transmitted by agent of provider Leigha Ford) Address [address], [place] [address] Care Team Providers Name Role Phone Orestes Blair MD - Neurology Care Team Information Book Trimmer Cindy Patel MD - Internal Care Team Information Book Trimmer [phone] Medicine Problems Active Problems Provider Date Mixed hyperlipidemia Alfred Green M.D. Onset: 08/29/2012 Depressive disorder Alfred Green M.D. Onset: 08/29/2012 Asthma without status asthmaticus Alfred Green M.D. Onset: 08/29/2012 Obesity Alfred Green M.D. 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 Onset: 04/17/2014 Social History Type Date Description Comments Sex Unknown Tobacco Use Start: Unknown Never Smoked Cigarettes ETOH Use Denies alcohol use Recreational Drug Use Denies Drug Use Tobacco Use Start: Unknown Patient has never smoked Smoking Status Reviewed: 11/16/18 Patient has never smoked Exercise Type/Frequency Exercises sporadically Allergies, Adverse Reactions, Alerts Active Allergies Reaction Severity Comments Date Hydrocodone Bitartrate itchy rash 09/17/2008 Ibuprofen 05/21/2015 Medications Active Medications SIG Qnty Indications Ordering Date Provider Atorvastatin Calcium take one tablet 90tabs E78.5 Cindy Patel, 2018 by mouth at M.D. 20mg Tablets bedtime Advair Diskus inhale 1 dose by 60units Cindy Patel, 04/20/2016 mouth twice a day M.DGisela 500-50mcg/Dose Aerosol Night Splint Left to use as needed 1units M72.2 Cindy Patel, 05/13/2015 Foot at night M.DGisela Albuterol Sulfate 1 vial via 150ml Kasi E. 05/07/2015 nebulizer 4 times Terrence Levin (2.5mg/3ML) 0.083% daily as needed Nebulizer Loratadine 1 by mouth every 90tabs Kasi E. 10/30/2014 10mg day Terrence Levin Tablets Multi For Her 50+ once a day Cindy Patel, 10/24/2013 MJacqueline Tablets Proair HFA take 2 puffs 8.5units Cindy Patel, 07/31/2013 every 4 to 6 M.DGisela 108(90Base) mcg/Act hours as needed Aerosol Immunizations CPT Code Status Date Vaccine Lot # [id number] Given 12/28/2016 Influenza Virus Vaccine, Quadrivalent, Split, Preservative Free [id number] Given 10/29/2015 Influenza Virus Vaccine, Quadrivalent, Split, Preservative Free 88426 Given 10/30/2014 Pneumococcal Conjugate Vaccine 13 Valent For [id number] Intramuscular Use 16685 Given 09/11/2014 Tdap - Tetanus/Diptheria/Acellular Pertussis 14248 Given 10/24/2013 Pneumonia Vaccine [id number] 93513 Given 10/24/2013 Tdap - Tetanus/Diptheria/Acellular Pertussis [id number] [id number] Given 03/12/2009 Influenza Virus Vaccine, Pandemic Formulation [id number] 80687 Given 03/12/2009 Administration Swine Flu Shot [id number] Refused 12/31/2008 Influenza Virus Vaccine, Pandemic Formulation Vital Signs Date Vital Result Comment 11/16/2018 11:05am Height 63 inches 5'3" Weight 197.00 lb Heart Rate 54 /min BP Systolic Sitting 144 mmHg BP Diastolic Sitting 84 mmHg O2 % BldC Oximetry 96 % BMI (Body Mass Index) 34.9 kg/m2 03/29/2018 1:31pm Height 63 inches 5'3" Weight 194.00 lb Heart Rate 71 /min BP Systolic Sitting 118 mmHg BP Diastolic Sitting 76 mmHg O2 % BldC Oximetry 97 % BMI (Body Mass Index) 34.4 kg/m2 Results Test Date Facility Test Result H/L Range Note Lipid Profile 11/09/2018 [facility] Triglycerides 115 mg/dL 1 (Trig/Chol/HDL) [address] [place] [address] [phone] Cholesterol 229 mg/dL 2 HDL Cholesterol 49.9 mg/dL 3 LDL Cholesterol 156 mg/dL 4 Comp Metabolic 11/09/2018 [facility] Sodium 142 mmol/L Normal 135-[address] [place] [address] [phone] Potassium 4.4 mmol/L Normal 3.5-5.0 Chloride 106 mmol/L Normal 101-111 Co2 Carbon Dioxide 31 mmol/L Normal 22-32 Anion Gap 5 mmol/L Normal 2-11 Glucose 84 mg/dL Normal 70-100 Blood Urea Nitrogen 17 mg/dL Normal 6-24 Creatinine 0.59 mg/dL Normal 0.51-0.95 BUN/Creatinine Ratio 28.8 High 8-20 Calcium 9.3 mg/dL Normal 8.6-10.3 Total Protein 6.3 g/dL Low 6.4-8.9 Albumin 3.8 g/dL Normal 3.2-5.2 Globulin 2.5 g/dL Normal 2-4 Albumin/Globulin Ratio 1.5 Normal 1-3 Total Bilirubin 0.60 mg/dL Normal 0.2-1.0 Alkaline Phosphatase 78 U/L Normal 34-104 Alt 25 U/L Normal 7-52 Ast 24 U/L Normal 13-39 Egfr Non- 102.9 >60 Egfr 124.6 >60 5 1 Desirable: <150 Borderline High: 150-199 High: 200-499 Very High: >500 2 Desirable: <200 Borderline High: 200-239 High: >239 3 Low: <40 Desirable: 40-60 High: >60 4 Desirable: <100 Near Optimal: 100-129 Borderline High: 130-159 High: 160-189 Very High: >189 5 Because ethnic data is not always [...] 15-29 5 Kidney failure <15 (or dialysis) Procedures Date Code Description Status 11/16/2018 00326 Admin Of Inj Completed 11/25/2015 424322428 Bone Mineral Density Test Completed 11/21/2015 [id number] Mammogram Completed 11/15/2014 [id number] Mammogram Completed 11/07/2014 [id number] Mammogram Completed 10/31/2013 [id number] Mammogram Completed 10/26/2013 [id number] Bone Mineral Density Test Completed 10/23/2012 [id number] Colonoscopy Completed 10/04/2012 [id number] Colonoscopy Completed 09/06/2012 [id number] Mammogram Completed 02/22/2010 [id number] Mammogram Completed Medical Devices Description No Information Available Encounters Description No Information Available Assessments Date Code Description Provider 11/16/2018 Z00.00 Encounter for general adult medical Cindy Patel M.D. examination without abnormal findings 11/16/2018 Z12.31 Encounter for screening mammogram for Cindy Patel M.D. malignant neoplasm of breast 11/16/2018 Z02.89 Encounter for other administrative Cindy Patel M.D. examinations 11/16/2018 E78.5 Hyperlipidemia, unspecified Cindy Patel M.D. 11/16/2018 R19.7 Diarrhea, unspecified iCndy Patel M.D. 11/16/2018 Z12.11 Encounter for screening for malignant neoplasm Cindy Patel M.D. of colon Plan of Treatment 11/16/2018 - Cindy Patel M.D.Z00.00 Encounter for general adult medical examination without abnormal findingsComments:self breast exams monthly, mammo is due Due for screening thaoilwilyqO08.31 Encounter for screening mammogram for malignant neoplasm of mgceakA86.89 Encounter for other administrative examinationsNew Labs:Mumps Igg, Ordered: 11/16/18Rubella Screen, Ordered: Rubeola Measles Igg AB, Ordered: 11/16/18Immunizations/Injections:PPDE78.5 Hyperlipidemia, unspecifiedNew Medication:Atorvastatin Calcium 20 mg - take one tablet by mouth at shscygvX37.7 Diarrhea, xlnazsylfwlM21.11 Encounter for screening for malignant neoplasm of colonReferral:Thelma Jefferson M.D., [facility] Functional Status Description No Information Available Mental Status Description No Information Available Referrals Refer to Reason for Referral Status Appt Date Thelma Jefferson M.D. Created [address] [place] [address] [phone]
[2018-11-28 08:06] VITALS: BP 143/81
== END 2018-11-28 09:01 | disposition home or self-care (01) ==
LOC: UCEAST 07:56
DX: M25.461 Effusion, right knee (principal); M17.11 Unilateral primary osteoarthritis, right knee; J45.909 Unspecified asthma, uncomplicated; Z88.5 Allergy status to narcotic agent
CPT/HCPCS: 99213; G0463

== ENCOUNTER 2019-07-14 11:00 | Observation (INO) ==
[~2019-07-14 11:00] MED LIST changes: +Dexamethasone IV 4 MG/ML VIAL 1 ml VIAL IV SLOW PU ONE; +Dexamethasone IV 4 MG/ML VIAL 1 ml VIAL ONE; +Famotidine IV 10 MG/ML 2 ml VIAL (20 mg) IV ONE; +Famotidine IV 10 MG/ML 2 ml VIAL (20 mg) ONE; +Lactated Ringers 1000 ml BAG 1,000 ML IV SCH; +Levalbuterol 0.63MG/3ML NEB UNIT OF USE INH ONE; -NS 0.9% 1000 ML* 1,000 ML IV ONE; -Ondansetron INJ* 2 MG/ML VIAL IV ONE; +ceFAZolin 2 GM PREMIX in ORs 2 GM/50 ML BAG ONE
[2019-07-14] MEDS ORDERED: fentaNYL 100 mcg/2 ml 50 MCG/ML VIAL ONE (11:37)
[2019-07-14] MEDS ORDERED: Midazolam 2 mg/2 ml VIAL 1 mg/ml 2 ml VIAL (2 mg) ONE (11:38)
[2019-07-14] MEDS ORDERED: ROPIVACAINE 5 MG/ML 30 ML BTL (0.5%) ONE ×2 (12:26→12:39)
[2019-07-14] MEDS ORDERED: Ondansetron 4 mg VIAL 2 MG/ML 2 ml VIAL IV PRN ×2 (13:47→14:41)
[2019-07-14] MEDS ORDERED: Magnesium Hydroxide LIQ 30 ML UDC PO PRN (13:47)
[2019-07-14] MEDS ORDERED: Lactulose 30 ml UDC PO PRN (13:47)
[2019-07-14] MEDS ORDERED: diPHENhydraMINE 25 mg TAB PO PRN (13:47)
[2019-07-14] MEDS ORDERED: diPHENhydraMINE IV 50 MG/ML 1 ml VIAL (BENADRYL) IV PRN (13:47)
[2019-07-14] MEDS ORDERED: Ondansetron ODT 4 mg TAB 4 MG TAB PO PRN (13:47)
[2019-07-14] MEDS ORDERED: fentaNYL 100 mcg/2 ml 50 MCG/ML VIAL IV PRN (14:41)
[2019-07-14] MEDS ORDERED: DiMENhydriNATE IV 50 mg/ml 1 ml VIAL IV PUSH PRN (14:41)
[2019-07-14] MEDS ORDERED: HYDROmorphone 1 MG/1 ML SYRINGE IV PRN (14:41)
[2019-07-14] MEDS ORDERED: Naloxone 0.4 mg VIAL 0.4 mg/ml 1 ml VIAL IV PRN (14:41)
[2019-07-14] MEDS ORDERED: diPHENhydraMINE IV 50 MG/ML 1 ml VIAL (BENADRYL) ONE (15:38)
[2019-07-14] MEDS: Lactated Ringers 1000 ml BAG 1,000 ML IV SCH (17:12)
[2019-07-14] MEDS: oxyCODONE/Acetamin 5/325 mg TAB PO PRN (18:18)
[2019-07-14] MEDS ORDERED: Albuterol 2.5mg/3 ml (0.083%) NEB.SOLN INH PRN (18:46)
[2019-07-14] MEDS ORDERED: CEFAZOLIN IVPB SCH (21:00)
[2019-07-14] MEDS ORDERED: NS 0.9% IVPB SCH (21:00)
[2019-07-14] MEDS ORDERED: ADVAN IVPB SCH (21:00)
[2019-07-14] MEDS: Magnesium Hydroxide LIQ 30 ML UDC PO SCH (21:59)
[2019-07-14] MEDS ORDERED: ceFAZolin 1 GM ADVAN(*) 1 GM in NS 0.9% 50 ML 50 ML IVPB SCH (22:06)
[2019-07-15] MEDS: oxyCODONE/Acetamin 5/325 mg TAB PO PRN ×3 (00:11→15:19)
[2019-07-15 04:52] LABS: Hematocrit 36 % (35-47); Hemoglobin 11.7 g/dL (12.0-16.0); Mean Platelet Volume 7.8 fL (7.4-10.4); Platelet Count 297 10^3/uL (150-450)
[2019-07-15 05:09] LABS: BUN/Creatinine Ratio 19.7 (8-20); Calcium 9.3 mg/dL (8.6-10.3); EGFR African American 119.9 (>60); EGFR Non-African American 99.1 (>60); Potassium 4.4 mmol/L (3.5-5.0)
[2019-07-15] MEDS: Lactated Ringers 1000 ml BAG 1,000 ML IV SCH (05:15)
[2019-07-15] MEDS: ceFAZolin 1 GM ADVAN(*) 1 GM in NS 0.9% 50 ML 50 ML IVPB SCH ×2 (07:47→15:16)
[2019-07-15] MEDS ORDERED: Vitamin THERAPEUTIC TAB PO SCH (09:00)
[2019-07-15] MEDS: Magnesium Hydroxide LIQ 30 ML UDC PO SCH (09:07)
[2019-07-15 15:25] VITALS: BP 127/57
== END 2019-07-15 15:45 | disposition home or self-care (01) ==
LOC: SSU 13:48 → AA 14:36 → INTOOBSV 14:36
PROVIDERS: ADMIT Orthopaedic Surgery Adult Reconstructive Orthopaedic Surgery; ATTEND Orthopaedic Surgery Adult Reconstructive Orthopaedic Surgery